=== PATIENT | female | born 1965 | race Caucasian/White ===

== ENCOUNTER 2020-12-03 11:50 | Outpatient (REF) | payer BC, SELFPAY ==
--- NOTE | ~2020-12-03 | XR_ITS ---
EXAMINATION: XR CHEST CLINICAL INFORMATION: Cough and fever. COMPARISON: None TECHNIQUE: 2 views of the chest were obtained. FINDINGS: The lungs are well-expanded and clear of acute process. The heart size and pulmonary vascularity is normal. No gross bony abnormality seen. XR/XR chest 2V IMPRESSION: Unremarkable chest exam.
== END 2020-12-03 11:51 | disposition home or self-care (01) ==
LOC: HO.XRAY 11:50
PROVIDERS: PCP Internal Medicine Medical Oncology; Visit Provider Internal Medicine Medical Oncology
DX: R05 Cough (principal); R50.9 Fever, unspecified
CPT/HCPCS: 71046

== ENCOUNTER 2022-01-01 07:58 | Outpatient (REF) | payer BC, SELFPAY ==
--- NOTE | ~2022-01-01 | MM_ITS ---
EXAMINATION: BONE DENSITOMETRY CLINICAL INDICATION: Osteoporosis. COMPARISON: None (current study represents initial baseline exam). TECHNIQUE: Using a [employer] DXA System (software version: 13.1) manufactured by [employer], dual-energy x-ray absorptiometry was performed of the lumbar spine and left hip. The images are of good technical quality. Summary results are attached. FINDINGS: AP SPINE L1-L4: BMD 1.167 g/cm2, Z-score 0.3, T-score -0.1, normal. LEFT FEMUR, NECK: BMD 0.899 g/cm2, Z-score -0.2, T-score -1.0, normal. LEFT FEMUR, TOTAL: BMD 0.894 g/cm2, Z-score -0.5, T-score -0.9, normal. IDENTIFIED RISK FACTORS: Menopause, osteoporosis, anticonvulsant. HISTORY OF FRACTURE: None listed. MEDICATIONS: None listed. MM/XR DEXA axial skeleton IMPRESSION: 1. DIAGNOSIS: Normal bone density based on the lowest T-score value of -1.0 in the femoral neck applying World Health Organization criteria. 2. 10-YEAR FRACTURE RISK PREDICTION, FRAX: According to the guidelines, FRAX calculation should only be performed on patients in the osteopenia bone density category. Therefore, FRAX was not performed on this patient. 3. Treatment Recommendations: NOF guidelines recommend consideration for treatment in postmenopausal women and men age 50 and older presenting with the following: -A hip or vertebral (clinical or morphometric) fracture. -T-score less than or equal to -2.5 at the femoral neck or spine after appropriate evaluation to exclude secondary causes. -Low bone mass at the hip or spine and a 10-year fracture probability by FRAX of greater than or equal to 3% for hip fracture or greater than or equal to 20% for major osteoporotic fracture based on the [place] adapted WHO algorithm. 4. Other Recommendations: All treatment decisions require clinical judgment and consideration of individual patient factors, including patient preferences, comorbidities, previous drug use, risk factors not captured in the FRAX model (e.g. frailty, falls, vitamin D deficiency, increased bone turnover, interval significant decline in bone density) and possible under or overestimation of fracture risk by FRAX. FUTURE SCAN RECOMMENDATION: People with diagnosed cases of osteoporosis or at high risk for fracture should have regular bone mineral density tests. For patients eligible for Medicare, routine testing is allowed once every 2 years. The testing frequency can be increased to one year for patients who have rapidly progressing disease, those who are receiving or discontinuing medical therapy to restore bone mass, or have additional risk factors.
== END 2022-01-01 07:59 | disposition home or self-care (01) ==
LOC: HO.MAMMO 07:58
PROVIDERS: Visit Provider Internal Medicine Medical Oncology
DX: Z13.820 Encounter for screening for osteoporosis (principal); Z78.0 Asymptomatic menopausal state; M81.0 Age-related osteoporosis without current pathological fracture
CPT/HCPCS: 77080

== ENCOUNTER 2022-06-02 10:30 | Outpatient (REF) | payer BC, SELFPAY ==
[2022-06-02 10:53] LABS: MANUAL DIFF FLAG NO
[2022-06-02 11:32] LABS: Basophils Percent Auto 0.4 % (0-2); Eosinophils Absolute Auto 0.2 X10*3/uL (0.0-0.4); Eosinophils Percent Auto 2.5 % (0-4); Hematocrit 40.3 % (37.0-47.0); Hemoglobin 13.6 g/dl (12.0-16.0); Imm Gran Abs Auto 0.03 X10*3/uL (0.00-0.03); Imm Gran Pct Auto 0.4 % (0.0-0.4); Lymphocytes Absolute Auto 2.2 X10*3/uL (1.2-4.9); Mean Corpuscular HGB Conc 33.7 g/dl (31.0-35.0); Mean Corpuscular Hemoglobin 30.4 pg (27.0-33.0); Mean Corpuscular Volume 90.2 fL (80.0-98.0); Mean Platelet Volume 10.6 fL (9.4-12.3); Monocytes Absolute Auto 0.6 X10*3/uL (0.1-1.2); Monocytes Percent Auto 8.3 % (2-11); Neutrophils Absolute Auto 4.5 x10*3/uL (2.0-8.3); Neutrophils Percent Auto 59.4 % (45-73); Platelet Count 255 X10*3/uL (160-400); Red Blood Count 4.47 X10*6/uL (4.20-5.50); Red Cell Distribution Width 12.2 % (11.0-16.0); White Blood Count 7.6 X10*3/uL (4.8-10.8)
[2022-06-02 12:15] LABS: Alanine Aminotransferase 19 U/L (0-31); Alkaline Phosphatase 68 U/L (39-117); Anion Gap 15 (12-20); Aspartate Amino Transferase 18 U/L (5-31); Bilirubin Total 0.2 mg/dL (0.0-1.0); Blood Urea Nitrogen 14 mg/dL (9-16); Calcium 8.9 mg/dL (8.4-10.2); Carbon Dioxide 25 mmol/L (22-29); Chloride 105 mmol/L (96-108); Cholesterol 210 mg/dL; Estimated Glomerular Filt Rate > 60; Glucose Fasting 115 mg/dL (60-99); HDL Cholesterol 52 mg/dL; LDL Cholesterol Calculated 116 mg/dl; Potassium 4.2 mmol/L (3.3-5.1); Sodium 141 mmol/L (135-145); Total Protein 6.6 g/dL (6.5-8.0); Triglycerides 210 mg/dL
== END 2022-06-02 10:31 | disposition home or self-care (01) ==
LOC: HO.LAB 10:30
PROVIDERS: PCP Internal Medicine Medical Oncology; Visit Provider Internal Medicine Medical Oncology
DX: E78.2 Mixed hyperlipidemia (principal); E66.3 Overweight
CPT/HCPCS: 36415; 80053; 80061; 85025

== ENCOUNTER 2022-12-15 10:29 | Outpatient (REF) | payer BC, SELFPAY ==
--- NOTE | ~2022-12-15 | US_ITS ---
EXAMINATION: US EXTRACRANIAL CAROTID DUPLEX, BILATERAL CLINICAL INFORMATION: Fibromuscular dysplasia COMPARISON: None available. TECHNIQUE: Real-time ultrasound and Doppler techniques (integrating B-mode 2-D vascular images, Doppler spectral analysis and color-flow Doppler imaging) were utilized to interrogate the extracranial carotid arteries, the vertebral arteries and proximal subclavian arteries bilaterally. The degree of stenosis is determined by criteria similar to NASCET. FINDINGS: Right Side: 1. There is no significant atherosclerotic plaque seen in the bifurcation/proximal ICA region. 2. The common carotid artery PSV proximally is 88.4 cm/s and distally 95 cm/s. 3. The proximal internal carotid artery velocities are 82.1 cm/s systolic and 27 cm/s diastolic. 4. The proximal external carotid artery PSV is 77.4 cm/s. 5. The vertebral artery shows antegrade flow. 6. The subclavian artery waveforms are normal. Left Side: 1. There is no significant atherosclerotic plaque seen in the bifurcation/proximal ICA region. 2. The common carotid artery PSV proximally is 111 cm/s and distally 96.7 cm/s. 3. The proximal internal carotid artery velocities are 78 cm/s systolic and 18.8 cm/s diastolic. 4. The proximal external carotid artery PSV is 89.7 cm/s. 5. The vertebral artery shows antegrade flow. 6. The subclavian artery waveforms are normal. US/US carotid duplex BI IMPRESSION: 1. RIGHT: Normal right internal carotid artery without atherosclerotic plaque or hemodynamically significant stenosis. 2. LEFT: Normal left internal carotid artery without atherosclerotic plaque or hemodynamically significant stenosis.
== END 2022-12-15 10:30 | disposition home or self-care (01) ==
LOC: HO.HMGCX 10:29
PROVIDERS: PCP Internal Medicine Medical Oncology; Visit Provider Internal Medicine Medical Oncology
DX: I77.3 Arterial fibromuscular dysplasia (principal); I65.29 Occlusion and stenosis of unspecified carotid artery; Z86.73 Personal history of transient ischemic attack (TIA), and cerebral infarction without residual deficits
CPT/HCPCS: 93880

== ENCOUNTER 2023-01-10 07:13 | Outpatient (REF) | payer BC, SELFPAY ==
[2023-01-10 07:33] LABS: MANUAL DIFF FLAG NO
[2023-01-10 07:43] LABS: Basophils Percent Auto 0.4 % (0-2); Eosinophils Absolute Auto 0.2 X10*3/uL (0.0-0.4); Eosinophils Percent Auto 3.3 % (0-4); Hematocrit 40.2 % (37.0-47.0); Imm Gran Abs Auto 0.02 X10*3/uL (0.00-0.03); Imm Gran Pct Auto 0.3 % (0.0-0.4); Lymphocytes Absolute Auto 2.5 X10*3/uL (1.2-4.9); Lymphocytes Percent Auto 35.6 % (20-40); Mean Corpuscular HGB Conc 34.8 g/dl (31.0-35.0); Mean Corpuscular Hemoglobin 30.9 pg (27.0-33.0); Mean Corpuscular Volume 88.7 fL (80.0-98.0); Mean Platelet Volume 9.3 fL (9.4-12.3); Monocytes Absolute Auto 0.6 X10*3/uL (0.1-1.2); Monocytes Percent Auto 8.7 % (2-11); Neutrophils Absolute Auto 3.6 x10*3/uL (2.0-8.3); Neutrophils Percent Auto 51.7 % (45-73); Platelet Count 261 X10*3/uL (160-400); Red Blood Count 4.53 X10*6/uL (4.20-5.50); Red Cell Distribution Width 12.4 % (11.0-16.0)
[2023-01-10 08:08] LABS: Alanine Aminotransferase 24 U/L (0-31); Albumin Level 4.2 g/dL (3.5-5.0); Alkaline Phosphatase 69 U/L (39-117); Anion Gap 15 (12-20); Aspartate Amino Transferase 22 U/L (5-31); Bilirubin Total 0.5 mg/dL (0.0-1.0); Blood Urea Nitrogen 16 mg/dL (9-16); Calcium 9.2 mg/dL (8.4-10.2); Carbon Dioxide 21 mmol/L (22-29); Chloride 107 mmol/L (96-108); Cholesterol 262 mg/dL; Estimated Glomerular Filt Rate > 60; Glucose Random 101 mg/dL (60-115); HDL Cholesterol 60 mg/dL; LDL Cholesterol Calculated 181 mg/dl; Potassium 4.3 mmol/L (3.3-5.1); Sodium 139 mmol/L (135-145); Total Protein 6.7 g/dL (6.5-8.0); Triglycerides 106 mg/dL
== END 2023-01-10 07:14 | disposition home or self-care (01) ==
LOC: HO.LAB 07:13
PROVIDERS: PCP Internal Medicine Medical Oncology; Visit Provider Internal Medicine Medical Oncology
DX: Z00.00 Encounter for general adult medical examination without abnormal findings (principal); E66.3 Overweight; E78.2 Mixed hyperlipidemia
CPT/HCPCS: 36415; 80053; 80061; 85025

== ENCOUNTER → 2023-01-12 08:57 | Outpatient (REF) | payer BC, SELFPAY | LOC: HO.SL 08:57 | PROVIDERS: PCP Internal Medicine Medical Oncology; Visit Provider Internal Medicine Medical Oncology | DX: R06.83 Snoring (principal); E66.3 Overweight | CPT/HCPCS: 95806 ==

== ENCOUNTER 2023-09-01 08:31 | Outpatient (REF) | payer BC, SELFPAY ==
[2023-09-01 09:00] LABS: MANUAL DIFF FLAG NO
[2023-09-01 09:20] LABS: Basophils Percent Auto 0.6 % (0-2); Eosinophils Absolute Auto 0.4 X10*3/uL (0.0-0.4); Eosinophils Percent Auto 4.9 % (0-4); Hematocrit 41.5 % (37.0-47.0); Hemoglobin 13.8 g/dl (12.0-16.0); Imm Gran Abs Auto 0.02 X10*3/uL (0.00-0.03); Imm Gran Pct Auto 0.3 % (0.0-0.4); Lymphocytes Absolute Auto 2.2 X10*3/uL (1.2-4.9); Lymphocytes Percent Auto 31.2 % (20-40); Mean Corpuscular HGB Conc 33.3 g/dl (31.0-35.0); Mean Corpuscular Hemoglobin 30.7 pg (27.0-33.0); Mean Corpuscular Volume 92.2 fL (80.0-98.0); Mean Platelet Volume 9.7 fL (9.4-12.3); Monocytes Absolute Auto 0.8 X10*3/uL (0.1-1.2); Monocytes Percent Auto 10.5 % (2-11); Neutrophils Absolute Auto 3.7 x10*3/uL (2.0-8.3); Neutrophils Percent Auto 52.5 % (45-73); Platelet Count 292 X10*3/uL (160-400); Red Cell Distribution Width 12.6 % (11.0-16.0); White Blood Count 7.1 X10*3/uL (4.8-10.8)
[2023-09-01 09:38] LABS: Alanine Aminotransferase 22 U/L (0-31); Albumin Level 4.2 g/dL (3.5-5.0); Alkaline Phosphatase 72 U/L (39-117); Anion Gap 15 (12-20); Aspartate Amino Transferase 18 U/L (5-31); Bilirubin Total 0.3 mg/dL (0.0-1.0); Blood Urea Nitrogen 19 mg/dL (9-16); Calcium 9.9 mg/dL (8.4-10.2); Carbon Dioxide 27 mmol/L (22-29); Chloride 100 mmol/L (96-108); Cholesterol 246 mg/dL (<200); Estimated Glomerular Filt Rate > 60; Glucose Fasting 97 mg/dL (60-99); HDL Cholesterol 64 mg/dL (>40); LDL Cholesterol Calculated 162 mg/dL (<100); Potassium 4.5 mmol/L (3.3-5.1); Sodium 137 mmol/L (135-145); Total Protein 7.3 g/dL (6.5-8.0); Triglycerides 103 mg/dL (<150)
== END 2023-09-01 08:32 | disposition home or self-care (01) ==
LOC: HO.LAB 08:31
PROVIDERS: PCP Internal Medicine Medical Oncology; Visit Provider Internal Medicine Medical Oncology
DX: Z00.00 Encounter for general adult medical examination without abnormal findings (principal); J45.909 Unspecified asthma, uncomplicated; E78.2 Mixed hyperlipidemia
CPT/HCPCS: 36415; 80053; 80061; 85025

== ENCOUNTER 2023-12-03 16:28 | Outpatient (REF) | payer BC, SELFPAY ==
[2023-12-03 18:30] LABS: Free T4 (Free Thyroxine) 0.97 ng/dL (0.71-1.85); Thyroid Stimulating Hormone 0.79 uIU/mL (0.32-4.0)
== END 2023-12-03 16:29 | disposition home or self-care (01) ==
LOC: HO.LAB 16:28
PROVIDERS: PCP Internal Medicine Medical Oncology; Visit Provider Internal Medicine Medical Oncology
DX: R53.83 Other fatigue (principal); R61 Generalized hyperhidrosis
CPT/HCPCS: 36415; 84439; 84443; 84481

== ENCOUNTER 2024-12-06 06:44 | Outpatient (REF) | payer BC, SELFPAY ==
[2024-12-06 07:01] LABS: MANUAL DIFF FLAG NO
[2024-12-06 07:17] LABS: Basophils Percent Auto 0.5 % (0-2); Eosinophils Absolute Auto 0.2 X10*3/uL (0.0-0.4); Eosinophils Percent Auto 2.7 % (0-4); Hematocrit 41.4 % (37.0-47.0); Hemoglobin 14.4 g/dl (12.0-16.0); Imm Gran Abs Auto 0.01 X10*3/uL (0.00-0.03); Imm Gran Pct Auto 0.1 % (0.0-0.4); Lymphocytes Absolute Auto 2.8 X10*3/uL (1.2-4.9); Lymphocytes Percent Auto 36.2 % (20-40); Mean Corpuscular HGB Conc 34.8 g/dl (31.0-35.0); Mean Corpuscular Hemoglobin 31.6 pg (27.0-33.0); Mean Corpuscular Volume 90.8 fL (80.0-98.0); Mean Platelet Volume 9.7 fL (9.4-12.3); Monocytes Absolute Auto 0.8 X10*3/uL (0.1-1.2); Monocytes Percent Auto 9.7 % (2-11); Neutrophils Percent Auto 50.8 % (45-73); Platelet Count 252 X10*3/uL (160-400); Red Blood Count 4.56 X10*6/uL (4.20-5.50); Red Cell Distribution Width 11.9 % (11.0-16.0); White Blood Count 7.8 X10*3/uL (4.8-10.8)
[2024-12-06 07:57] LABS: Alanine Aminotransferase 26 U/L (0-31); Albumin Level 4.3 g/dL (3.5-5.0); Alkaline Phosphatase 69 U/L (39-117); Anion Gap 13 (12-20); Aspartate Amino Transferase 21 U/L (5-31); Bilirubin Total 0.3 mg/dL (0.0-1.0); Blood Urea Nitrogen 15 mg/dL (9-16); Calcium 9.4 mg/dL (8.4-10.2); Carbon Dioxide 27 mmol/L (22-29); Chloride 104 mmol/L (96-108); Cholesterol 203 mg/dL (<200); Estimated Glomerular Filt Rate > 60; Glucose Fasting 93 mg/dL (60-99); HDL Cholesterol 68 mg/dL (>40); Potassium 4.2 mmol/L (3.3-5.1); Sodium 140 mmol/L (135-145); Total Protein 7.4 g/dL (6.5-8.0)
[2024-12-06 09:06] LABS: LDL Cholesterol Calculated 120 mg/dL (<100); Triglycerides 76 mg/dL (<150)
== END 2024-12-06 06:45 | disposition home or self-care (01) ==
LOC: HO.LAB 06:44
PROVIDERS: PCP Internal Medicine Medical Oncology; Visit Provider Internal Medicine Medical Oncology
DX: E78.2 Mixed hyperlipidemia (principal); E66.3 Overweight
CPT/HCPCS: 36415; 80053; 80061; 85025

== ENCOUNTER 2025-07-07 07:24 | Outpatient (AMB) | payer BC, SELFPAY ==
--- OUTSIDE RECORDS SUMMARY | 2024-12-07 12:00 | XMS_ITS ---
Author Organization Serg Otto III, MD Address [address] [place] [address] [place] [address] Care Team Providers Care Animal Chiropractor Name Role Phone Dr. Serg Otto III Primary Care Provider Allergies Allergen (clinical drug ingredient) Drug/Non Drug Allergy documented on EMR Reaction Allergy Type Onset Date Status Mold Unknown Allergy Active Dust Mites Unknown Allergy Active shrimp allergenic extract Shrimp (Diagnostic) Unknown Drug Allergy Active REASON FOR VISIT Annual Exam Medications Medication SIG (Take, Route, Frequency, Duration) Notes Start Date End Date Status ProAir HFA 108 (90 Base) MCG/ACT 2 puffs as needed Inhalation every 6 hrs Active SUMAtriptan Succinate 100 MG TAKE 1 TABLET BY MOUTH ONCE DAILY NEEDED FOR MIGRAINE Active Paxlovid (300/100) 20 x 150 MG & 10 x 100MG 3 tablets Orally Twice a day 06/15/2023 Active Albuterol Sulfate HFA 108 (90 Base) MCG/ACT 2 puffs Inhalation every 4 hrs for 30 days disp one inhaler 12/07/2024 Active traZODone HCl 50 MG 1 tablet at bedtime as needed Orally Once a day Active Wellbutrin Active LaMICtal 150 MG Oral Acti ve buPROPion HCl ER (SR) 150 MG 1 tablet Orally Twice a day Active Social History Tobacco Use: Social History Observation Description Date Details (start date - stop date) Former Smoker NA - NA Sex Assigned At : Social History Observation Description Sex Assigned At Female Tobacco Control (Standard) Question Answer Notes Tobacco use: Former smoker How long has it been since you last smoked? 1-5 years Additional Findings: Tobacco non-user Ex-cigaret te smoker AUDIT-C (Standard) Question Answer Notes Did you have a drink containing alcohol in the p ast year? No Points 0 Interpretation Negative Problems Problem Type SNOMED Code ICD Code Onset Dates Problem Status W/U Status Risk Notes Problem Postmenopausal (61849552) Postmenopausal (Z78.0) Active confirmed He is mildly symptomatic and it waas not one of her complaints. We discussed bone density measurements and HEAD HOST/HOSTESS visits in menopause. Vital Signs Temperature 99.5 degrees Fahrenheit 12/08/19 25 Blood pressure systolic 130 mm Hg 12/08/19 25 Blood pressure diastolic 65 mm Hg 025 Heart Rate 83 /min 12/07/2024 Height 64.5 in 12/07/2024 Weight 131 lbs 12/07/2024 BMI 22.14 kg/m2 12/07/2024 Encounters Encounter Location Date Provider Diagnosis Serg Otto III, MD [address] [place] [address] [place] [address] 12/07/2024 Serg Otto Mixed hyperlipidemia E78.2 ; Bipolar affective disorder, remission status unspecified F31.9 ; Postmenopausal Z78.0 ; Reactive depression F32.9 ; Asthma due to environmental allergies J45.909 ; Pain in right shoulder M25.511 and Former smoker Z87.891 Assessments Encounter Date Diagnosis (ICD Code) Assessment Notes Treat ment Notes Treatment Clinical Notes 12/07/2024 Mixed hyperlipidemia (ICD-10 - E78.2) Her total cholesterol is 202 and her weight is in the normal range. I recommended a healthy Mediterranean diet and regular physical activity. 12/07/2024 Bipolar affective disorder, remission status unspecified (ICD-10 - F31.9) She will continue on her current therapies and see Dr. Salomon regularly. She is stable and compensated at this time. 12/07/2024 Postmenopausal (ICD-10 - Z78.0) He is mildly symptomatic and it waas not one of her complaints. We discussed bone density measurements and HEAD HOST/HOSTESS visits in menopause. 12/07/2024 Reactive depression (ICD-10 - F32.9) Her depression is well controlled. She is compliant with her medications. She has had no suicidal thinking. 12/07/2024 Asthma due to environmental allergies (ICD-10 - J45.909) She has not experienced any asthma in the recent past. She has medication. If necessary. Her lungs were clear today without wheezes, rales, rhonchi. 12/07/2024 Pain in right shoulder (ICD-10 - M25.511) The pain continues. She was offered an orthopedic referral and will consider it. 12/07/2024 Former smoker (ICD-1 0 - Z87.891) She is highly motivated not to smoke and we discussed a plan to prevent relapse in times of stress or illness. Plan Of Treatment Medication Medication Name Sig Start Date Stop Date Notes ProAir HFA 108 (90 Base) MCG/ACT 2 puffs as needed Inhalation every 6 hrs SUMAtriptan Succinate 100 MG TAKE 1 TABLET BY MOUTH ONCE DAILY NEEDED FOR MIGRAINE Paxlovid (300/100) 20 x 150 MG & 10 x 100MG 3 tablets Orally Twice a day 06/15/2023 Albuterol Sulfate HFA 108 (90 Base) MCG/ACT 2 puffs Inhalation every 4 hrs for 30 days 12/07/2024 disp one inhaler traZODone HCl 50 MG 1 tablet at bedtime as needed Orally Once a day Wellbutrin LaMICtal 150 MG Oral buPROPion HCl ER (SR) 150 MG 1 tablet Orally Twice a day Pending Test Test Name Order Date PROFILE, FASTING (COMPREHENSIVE METABOLI C) 12/07/2024 CBC w DIFF 12/07/2024 BONE DENSITY DEXA 12/07/2024 Lipid Panel 12/07/2024 Next Appt Details Follow Up: 1 Year, Reason: A nnual Exam Provider Name:Serg Otto , 12/08/2025 04:00:00 PM, [address] [place] [address] , [address], [place], [id number], Progress Notes * Nahomi BOO ADOB:[birth year] (58 yo F)Acc No.[id number]:12/07/2024 Progress Notes Patient: Nahomi ALVARZE Provider: Maritza Otto MD :1965 A ge:58 Y S ex:Female Date:12/07/2024 Address:[address] [place], [place] [id number] Subjective: * Chief Complaints: * A nnual Exam * HPI: D epression Screening: She returns to the office at the age of 58, for her annual visit. She is due for her annual mammogram and this was scheduled for her today. She is now postmenopausal. 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 She is up-to-date with colonoscopy. She has no new complaints and denies any chest pain or shortness of breath. W e have discussed the upcoming pollen season. PHQ-9 L ittle interest or pleasure in doing things?Not at all F eeling down, depressed, or hopeless S everal days T rouble falling or staying asleep, or sleeping too much S everal days F eeling tired or having little energy S everal days P oor appetite or overeating N ot at all F eeling bad about yourself or that you are a failure, or have let yourself or your family down N ot at all T rouble concentrating on things, such as reading the newspaper or watching television N ot at all M oving or speaking so slowly that other people could have noticed; or the opposite, being so fidgety or restless that you have been moving around a lot more than usual N ot at all T houghts that you would be better off or of hurting yourself in some way N ot at all T otal Score 3 I nterpretation M inimal Depression C OVID-19 Screening: Questions H ave you had any new onset fever, chills, cough, congestion, sore throat, shortness of breath, muscle aches? N o S MARI Questions: SDOH Questions I n the past year have you been worried about losing your housing? N o I n the past year have you or any family members you live with been unable to get any of the following when it was really needed? Check all that apply: N one * ROS: G eneral/Constitutional: pain o nly normal aches and pains. C hills d enies.?Fatigue a dmits. F ever d enies. E NT: Decreased hearing d enies. R espiratory: Cough d enies. C ardiovascular: Chest pain with exertion d enies. D yspnea on exertion?denies. S hortness of breath d enies. G astrointestinal: Constipation d enies. D ecreased appetite d enies.?Diarrhea d enies. H eartburn c ontrolled with medications. N ausea d enies.?Rectal bleeding d enies. V omiting d enies. H ematology: bruising d enies. p etechiae d enies. S wollen glands n one have been noted. G enitourinary: Frequent urination a t night. M usculoskeletal: Muscle aches d enies. P ainful joints R ight shoulder. S ciatica d enies. W eakness d enies. S kin: Itching d enies. R magui d enies. S kin lesion(s)?denies. N eurologic: Difficulty speaking d enies. D izziness d enies.?Headache d enies. L ow back pain d enies. P sychiatric: Depressed mood w hich is mild. * Medical History: * Surgical History: t onsillectomy age 5 mole removed from the nose bce mohs [id number] colonoscopy, Dr. Barnard, negative results 2018 * Hospitalization/Major Diagno stic Procedure: D enies Past Hospitalization * Family History: F ather: alive 74 yrs, BPH, Glioblastoma, diagnosed with Cancer, HTN. M other: alive 73 yrs, skin cancer. 1 sister(s) - healthy. 1 son(s) . . Her son has schizoaffective disorder and bipolar disorder. Her sister, Kelley, is healthy and well. * Social History: T obacco Use: T obacco Control (Standard) T obacco use: F ormer smoker H ow long has it been since you last smoked??1-5 years A dditional Findings: Tobacco non-user E x-cigarette smoker D rugs/Alcohol: D rugs H ave you used drugs other than those for medical reasons in the past 12 months? N o D rug/Alcohol: A PRINCESS-C (Standard) D id you have a drink containing alcohol in the past year? N o P oints 0 I nterpretation N egative S he was born in the [facility]. 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 She recently moved from [place] to [place], [place]. Her previous name was Jasmeet. * Medications: T akingProAir HFA 108 (90 Base) MCG/ACT Aerosol Solution 2 puffs as needed Inhalation every 6 hrs traZODone HCl 50 MG Tablet 1 tablet at bedtime as needed Orally Once a day buPROPion HCl ER (SR) 150 MG Tablet Extended Release 12 Hour 1 tablet Orally Twice a day Wellbutrin LaMICtal 150 MG Tablet Oral SUMAtriptan Succinate 100 MG Tablet TAKE 1 TABLET BY MOUTH ONCE DAILY NEEDED FOR MIGRAINE Taking ProAir HFA 108 (90 Base) MCG/ACT Aerosol Solution 2 puffs as needed Inhalation every 6 hrs Taking traZODone HCl 50 MG Tablet 1 tablet at bedtime as needed Orally Once a day Taking buPROPion HCl ER (SR) 150 MG Tablet Extended Release 12 Hour 1 tablet Orally Twice a day Taking Wellbutrin Taking LaMICtal 150 MG Tablet Oral Taking SUMAtriptan Succinate 100 MG Tablet TAKE 1 TABLET BY MOUTH ONCE DAILY NEEDED FOR MIGRAINE DiscontinuedPaxlovid (300/100) 20 x 150 MG & 10 x 100MG Tablet Therapy Pack 3 tablets Orally Twice a day Medication List reviewed and reconciled with the patientDiscontinued Paxlovid (300/100) 20 x 150 MG & 10 x 100MG Tablet Therapy Pack 3 tablets Orally Twice a day Medication List reviewed and reconciled with the patient * Allergies: S hrimp (Diagnostic)MoldDust Mitesno[Allergies Verified] Objective: * Vitals: H t: 64.5, Wt: 131, BMI:22.14, BP: 130/65, HR: 83, Temp: 99.5, Wt-k.42. * P ast Orders: Lab:Complete Blood Count Aut o Diff * Collection Date 12/06/2024 09/01/2023 06/02/2022 Collection Time 07:01 AM 08:59 AM 10:52 AM Order Date 12/06/2024 09/01/2023 06/02/2022 White Blood Count 7.8 (Ref Range: 4.8-10.8 X10*3/uL) 7.1 (Ref Range: 4.8-10.8 X10*3/uL) 7.6 (Ref Range: 4.8-10.8 X10*3/uL) Red Blood Count 4.56 (Ref Range: 4.20-5.50 X10*6/uL) 4.50 (Ref Range: 4.20-5.50 X10*6/uL) 4.47 (Ref Range: 4.20-5.50 X10*6/uL) Hemoglobin 14.4 (Ref Range: 12.0-16.0 g/dl) 13.8 (Ref Range: 12.0-16.0 g/dl) 13.6 (Ref Range: 12.0-16.0 g/dl) Hematocrit 41.4 (Ref Range: 37.0-47.0 %) 41.5 (Ref Range: 37.0-47.0 %) 40.3 (Ref Range: 37.0-47.0 %) Mean Corpuscular Volume 90.8 (Ref Range: 80.0-98.0 fL) 92.2 (Ref Range: 80.0-98.0 fL) 90.2 (Ref Range: 80.0-98.0 fL) Mean Corpuscular Hemoglobin 31.6 (Ref Range: 27.0-33.0 pg) 30.7 (Ref Range: 27.0-33.0 pg) 30.4 (Ref Range: 27.0-33.0 pg) Mean Corpuscular HGB Conc 34.8 (Ref Range: 31.0-35.0 g/dl) 33.3 (Ref Range: 31.0-35.0 g/dl) 33.7 (Ref Range: 31.0-35.0 g/dl) Red Cell Distribution Width 11.9 (Ref Range: 11.0-16.0 %) 12.6 (Ref Range: 11.0-16.0 %) 12.2 (Ref Range: 11.0-16.0 %) Platelet Count 252 (Ref Range: 160-400 X10*3/uL) 292 (Ref Range: 160-400 X10*3/uL) 255 (Ref Range: 160-400 X10*3/uL) Mean Platelet Volume 9.7 (Ref Range: 9.4-12.3 fL) 9.7 (Ref Range: 9.4-12.3 fL) 10.6 (Ref Range: 9.4-12.3 fL) Neutrophils Percent Auto 50.8 (Ref Range: 45-73 %) 52.5 (Ref Range: 45-73 %) 59.4 (Ref Range: 45-73 %) Imm Gran Pct Auto 0.1 (Ref Range: 0.0-0.4 %) 0.3 (Ref Range: 0.0-0.4 %) 0.4 (Ref Range: 0.0-0.4 %) Lymphocytes Percent Auto 36.2 (Ref Range: 20-40 %) 31.2 (Ref Range: 20-40 %) 29.0 (Ref Range: 20-40 %) Monocytes Percent Auto 9.7 (Ref Range: 2-11 %) 10.5 (Ref Range: 2-11 %) 8.3 (Ref Range: 2-11 %) Eosinophils Percent Auto 2.7 (Ref Range: 0-4 %) 4.9 H (Ref Range: 0-4 %) 2.5 (Ref Range: 0-4 %) Basophils Percent Auto 0.5 (Ref Range: 0-2 %) 0.6 (Ref Range: 0-2 %) 0.4 (Ref Range: 0-2 %) NRBC Pct Auto 0.0 (Ref Range: 0.0-0.2 /100WBC) 0.0 (Ref Range: 0.0-0.2 /100WBC) 0.0 (Ref Range: 0.0-0.2 /100WBC) Neutrophils Absolute Auto 4.0 (Ref Range: 2.0-8.3 x10*3/uL) 3.7 (Ref Range: 2.0-8.3 x10*3/uL) 4.5 (Ref Range: 2.0-8.3 x10*3/uL) Imm Gran Abs Auto 0.01 (Ref Range: 0.00-0.03 X10*3/uL) 0.02 (Ref Range: 0.00-0.03 X10*3/uL) 0.03 (Ref Range: 0.00-0.03 X10*3/uL) Lymphocytes Absolute Auto 2.8 (Ref Range: 1.2-4.9 X10*3/uL) 2.2 (Ref Range: 1.2-4.9 X10*3/uL) 2.2 (Ref Range: 1.2-4.9 X10*3/uL) Monocytes Absolute Auto 0.8 (Ref Range: 0.1-1.2 X10*3/uL) 0.8 (Ref Range: 0.1-1.2 X10*3/uL) 0.6 (Ref Range: 0.1-1.2 X10*3/uL) Eosinophils Absolute Auto 0.2 (Ref Range: 0.0-0.4 X10*3/uL) 0.4 (Ref Range: 0.0-0.4 X10*3/uL) 0.2 (Ref Range: 0.0-0.4 X10*3/uL) Basophils Absolute Auto 0.0 (Ref Range: 0.0-0.2 X10*3/uL) 0.0 (Ref Range: 0.0-0.2 X10*3/uL) 0.0 (Ref Range: 0.0-0.2 X10*3/uL) NRBC Abs Auto 0.000 (Ref Range: 0.0-0.012 X10*3/uL) 0.000 (Ref Range: 0.0-0.012 X10*3/uL) 0.000 (Ref Range: 0.0-0.012 X10*3/uL) * Lab:[facility] * Collection Date 12/06/2024 09/01/2023 06/02/2022 Collection Time 07:01 AM 08:59 AM 10:52 AM Order Date 12/06/2024 09/01/2023 06/02/2022 Sodium 140 (Ref Range: 135-145 mmol/L) 137 (Ref Range: 135-145 mmol/L) 141 (Ref Range: 135-145 mmol/L) Bilirubin Total 0.3 (Ref Range: 0.0-1.0 mg/dL) 0.3 (Ref Range: 0.0-1.0 mg/dL) 0.2 (Ref Range: 0.0-1.0 mg/dL) Aspartate Amino Transferase 21 (Ref Range: 5-31 U/L) 18 (Ref Range: 5-31 U/L) 18 (Ref Range: 5-31 U/L) Alanine Aminotransferase 26 (Ref Range: 0-31 U/L) 22 (Ref Range: 0-31 U/L) 19 (Ref Range: 0-31 U/L) Total Protein 7.4 (Ref Range: 6.5-8.0 g/dL) 7.3 (Ref Range: 6.5-8.0 g/dL) 6.6 (Ref Range: 6.5-8.0 g/dL) Albumin Level 4.3 (Ref Range: 3.5-5.0 g/dL) 4.2 (Ref Range: 3.5-5.0 g/dL) 4.0 (Ref Range: 3.5-5.0 g/dL) Alkaline Phosphatase 69 (Ref Range: 39-117 U/L) 72 (Ref Range: 39-117 U/L) 68 (Ref Range: 39-117 U/L) Potassium 4.2 (Ref Range: 3.3-5.1 mmol/L) 4.5 (Ref Range: 3.3-5.1 mmol/L) 4.2 (Ref Range: 3.3-5.1 mmol/L) Chloride 104 (Ref Range: 96-108 mmol/L) 100 (Ref Range: 96-108 mmol/L) 105 (Ref Range: 96-108 mmol/L) Carbon Dioxide 27 (Ref Range: 22-29 mmol/L) 27 (Ref Range: 22-29 mmol/L) 25 (Ref Range: 22-29 mmol/L) Anion Gap 13 (Ref Range: 12-20) 15 (Ref Range: 12-20) 15 (Ref Range: 12-20) Blood Urea Nitrogen 15 (Ref Range: 9-16 mg/dL) 19 H (Ref Range: 9-16 mg/dL) 14 (Ref Range: 9-16 mg/dL) Creatinine 0.79 (Ref Range: 0.5-1.4 mg/dL) 0.87 (Ref Range: 0.5-1.4 mg/dL) 0.86 (Ref Range: 0.5-1.4 mg/dL) Estimated Glomerular Filt Rate > 60 > 60 > 60 Glucose Fasting 93 (Ref Range: 60-99 mg/dL) 97 (Ref Range: 60-99 mg/dL) 115 H (Ref Range: 60-99 mg/dL) Calcium 9.4 (Ref Range: 8.4-10.2 mg/dL) 9.9 (Ref Range: 8.4-10.2 mg/dL) 8.9 (Ref Range: 8.4-10.2 mg/dL) * Lab:Lipid Panel * Collection Date 12/06/2024 09/01/2023 06/02/2022 Collection Time 07:01 AM 08:59 AM 10:52 AM Order Date 12/06/2024 09/01/2023 06/02/2022 Triglycerides 76 (Ref Range: <150 mg/dL) 103 (Ref Range: <150 mg/dL) 210 (Ref Range: mg/dL) Cholesterol 203 H (Ref Range: <200 mg/dL) 246 H (Ref Range: <200 mg/dL) 210 (Ref Range: mg/dL) LDL Cholesterol Calculated 120 H (Ref Range: <100 mg/dL) 162 H (Ref Range: <100 mg/dL) 116 (Ref Range: mg/dl) HDL Cholesterol 68 (Ref Range: >40 mg/dL) 64 (Ref Range: >40 mg/dL) 52 (Ref Range: mg/dL) * Examination: G eneral Examination: GENERAL APPEARANCE: p leasant, well nourished, well developed, in no acute distress, calm and relaxed, woman. HEAD: a traumatic, normocephalic. EYES: e brenda, perrla, anicteric, conjugate. EARS: n ormal. NOSE: s eptum intact. ORAL CAVITY: n ormal, unremarkable. NECK/THYROID: n o jugular venous distention, no carotid bruit, thyroid normal. LYMPH NODES: n o enlarged lymph nodes,spleen normal. SKIN: n o suspicious lesions, anicteric. HEART: n o clicks, gallops, murmurs, or rubs, regular rhythm, S1, S2 normal, no s3, or vascular bruits. LUNGS: c lear to auscultation . BREASTS: P refers HEAD HOST/HOSTESS. ABDOMEN: b owel sounds normal, no ascites, no organomegaly, no mass. RECTAL EXAM: n ot examined, Prefers HEAD HOST/HOSTESS. MUSCULOSKELETAL: e xtremities unremarkable, no clubbing, cyanosis or edema. PERIPHERAL PULSES: n ormal. NEUROLOGIC: a lert and oriented, cranial nerves 2-12 grossly intact, deep tendon reflexes 2+ symmetrical, motor strength normal upper and lower extremities, sensory exam intact. PSYCH: a lert, oriented. Assessment: * Assessment: 1. B ipolar affective disorder, remission status unspecified - F31.9 (Primary) N otes :She will continue on her current therapies and see Dr. Salomon regularly. She is stable and compensated at this time. 2 . M ixed hyperlipidemia - E78.2 N otes :Her total cholesterol is 202 and her weight is in the normal range. I recommended a healthy Mediterranean diet and regular physical activity. 3 . P ostmenopausal - Z78.0 N otes :He is mildly symptomatic and it waas not one of her complaints. We discussed bone density measurements and HEAD HOST/HOSTESS visits in menopause. 4 . R eactive depression - F32.9 N otes :Her depression is well controlled. She is compliant with her medications. She has had no suicidal thinking. 5 . A sthma due to environmental allergies - J45.909 N otes :She has not experienced any asthma in the recent past. She has medication. If necessary. Her lungs were clear today without wheezes, rales, rhonchi. 6 . P ain in right shoulder - M25.511 N otes :The pain continues. She was offered an orthopedic referral and will consider it. 7 . F ormer smoker - Z87.891 N otes :She is highly motivated not to smoke and we discussed a plan to prevent relapse in times of stress or illness. Plan: * Treatment: 2. P ostmenopausal I maging: BONE DENSITY DEXA 3. O thers Continue SUMAtriptan Succinate Tablet, 100 MG, TAKE 1 TABLET BY MOUTH ONCE DAILY NEEDED FOR MIGRAINE; C ontinue Paxlovid (300/100) Tablet Therapy Pack, 20 x 150 MG & 10 x 100MG, 3 tablets, Orally, Twice a day; C ontinue ProAir HFA Aerosol Solution, 108 (90 Base) MCG/ACT, 2 puffs as needed, Inhalation, every 6 hrs; C ontinue traZODone HCl Tablet, 50 MG, 1 tablet at bedtime as needed, Orally, Once a day; C ontinue buPROPion HCl ER (SR) Tablet Extended Release 12 Hour, 150 MG, 1 tablet, Orally, Twice a day; C ontinue Wellbutrin; C ontinue LaMICtal Tablet, 150 MG, Oral; S tart Albuterol Sulfate HFA Aerosol Solution, 108 (90 Base) MCG/ACT, 2 puffs, Inhalation, every 4 hrs, 30 days, 1 Applicator, Refills 11, Notes to Pharmacist: disp one inhaler. * Procedure Codes: * Preventive Medicine: Counseling: S moking/Tobacco Use Patient counseled on the dangers of tobacco use and urged to quit. 0 12/07/2024 * Follow Up: 1 Year (Reason: Annual Exam) * Images: * Sign off status: Completed true * Provider: Maritza Otto MD Date: 0 12/07/2024 Generated for Arianna almaguer/Nitza/Cbransmitting on: 1 07:26 AM EDT History and Physical Notes * HPI (History of Present Illness) Category Sub-Category Detail Notes Depression Screening PHQ-9 Little inte rest or pleasure in doing things: Not at all Feeling down, depressed, or hopeless: Se veral days Trouble falling or staying asleep, or sl eeping too much: Several days Feeling tired or having little energy: S everal days Poor appetite or overeating: Not at all Feeling bad about yourself o r that you are a failure, or have let yourself or your family down: Not at all Trouble concentrating on thi ngs, such as reading the newspaper or watching television: Not at all Moving or speaking so slowly that other people could have noticed; or the opposite, being so fidgety or restless that you have been moving around a lot more than usual: Not at all Thoughts that you would be b marlon off or of hurting yourself in some way: Not at all Total Score: 3 Interpretation: Minimal Depression COVID-19 Screening Questions Have you had any new onset fever, chills, cough, congestion, sore throat, shortness of breath, muscle aches?: No SDOH Questions SDOH Questions In the past year have you been worried about losing your housing?: No In the past year have you or any family members you live with been unable to get any of the following when it was really needed? Check all that apply:: None Examination Category Sub-Category Detail Notes General Examination GENERAL APPEARANCE: pleasant , well nourished, well developed, in no acute distress, calm and relaxed, woman HEAD: atraumatic, normocep halic EYES: eomi, perrla, anicte patricia, conjugate EARS: normal NOSE: septum intact NECK/THYROID: no jugular venous di stention, no carotid bruit, thyroid normal HEART: no clicks, gallops, murmurs, or rubs, regular rhythm, S1, S2 normal, no s3, or vascular bruits LUNGS: clear to auscultatio n ABDOMEN: bowel sounds normal, no ascites, no organomegaly, no mass NEUROLOGIC: alert and oriented, cranial nerves 2-12 grossly intact, deep tendon reflexes 2+ symmetrical, motor strength normal upper and lower extremities, sensory exam intact SKIN: no suspicious lesion s, anicteric PERIPHERAL PULSES: normal BREASTS: Prefers HEAD HOST/HOSTESS MUSCULOSKELETAL: extremities unremark able, no clubbing, cyanosis or edema LYMPH NODES: no enlarged lymph no zackary,spleen normal RECTAL EXAM: not examined, Prefer s HEAD HOST/HOSTESS PSYCH: alert, oriented ORAL CAVITY: normal, unremarkable
--- OUTSIDE RECORDS SUMMARY | 2025-06-19 05:15 | XMS_ITS ---
Author Organization Serg Otto III, MD Address [address] [place] [address] [place] [id number] Care Team Providers Care Profile Shaper Operator Name Role Phone Dr. Serg Otto III Primary Care Provider Allergies Allergen (clinical drug ingredient) Drug/Non Drug Allergy documented on EMR Reaction Allergy Type Onset Date Status Mold Unknown Allergy Active Dust Mites Unknown Allergy Active shrimp allergenic extract Shrimp (Diagnostic) Unknown Drug Allergy Active Reason For Referral Reason Evaluate and Treat Increased Migraine Diagnosis 1 Migraine without aur a and without status migrainosus, not intractable (G43.009) Referral Organization Serg Otto III, MD Referring Provider First Name Serg Referring Provider Last Name Clarita Referring Provider Speciality Internal M edicine Referred Provider Anjel Henry Referred Provider Specialty Neurology General Notes Mikayla Marrero 06/23/2025 04:22:03 PM > referral and progress note faxed. Referral Priority Routine REASON FOR VISIT Frequent migraine headaches, Bipolar disorder, Depression, Asthma, Right shoulder pain Medications Medication SIG (Take, Route, Frequency, Duration) Notes Start Date End Date Status SUMAtriptan Succinate 100 MG 1 tablet if needed, may take second dose at least 2 hours after first Orally twice a day for 21 days 06/19/2025 Active traZODone HCl 50 MG 1 tablet at bedtime as needed Orally Once a day Active buPROPion HCl ER (SR) 150 MG 1 tablet Orally Twice a day Active ProAir HFA 108 (90 Base) MCG/ACT 2 puffs as needed Inhalation every 6 hrs Active Albuterol Sulfate HFA 108 (90 Base) MCG/ACT 2 puffs Inhalation every 4 hrs disp one inhaler 12/07/2024 Active SUMAtriptan Succinate 100 MG TAKE 1 TABLET BY MOUTH ONCE DAILY if NEEDED FOR MIGRAINE Orally Once a day Active Wellbutrin Active LaMICtal 150 MG Oral Acti ve Social History Tobacco Use: Social History Observation Description Date Details (start date - stop date) Former Smoker NA - NA Sex Assigned At : Social History Observation Description Sex Assigned At Female Tobacco Control (Standard) Question Answer Notes Tobacco use: Former smoker How long has it been since you last smoked? 1-5 years Additional Findings: Tobacco non-user Ex-cigaret te smoker Vital Signs Temperature 97.5 degrees Fahrenheit 06/19/20 25 Blood pressure systolic 119 mm Hg 06/19/20 25 Blood pressure diastolic 77 mm Hg 025 Heart Rate 82 /min 06/19/2025 Height 64.5 in 06/19/2025 Weight 132 lbs 06/19/2025 BMI 22.31 kg/m2 06/19/2025 Encounters Encounter Location Date Provider Diagnosis Serg Otto III, MD [address] [place] [address] [place], [place] [phone] 06/19/2025 Serg Otto Bipolar affective disorder, remission status unspecified F31.9 ; Migraine without aura and without status migrainosus, not intractable G43.009 ; Reactive depression F32.9 ; Asthma due to environmental allergies J45.909 ; Pain in right shoulder M25.511 and Gastroesophageal reflux disease without esophagitis K21.9 Assessments Encounter Date Diagnosis (ICD Code) Assessment Notes Treat ment Notes Treatment Clinical Notes 06/19/2025 Bipolar affective disorder, remission status unspecified (ICD-10 - F31.9) She will continue on her current therapies and see Dr. Salomon regularly. She is stable and compensated at this time. 06/19/2025 Migraine without aur a and without status migrainosus, not intractable (ICD-10 - G43.009) She will continue on Imitrex.I have refilled that prescription and given her a larger supply. I have referred her to neurology for an expert opinion. 06/19/2025 Reactive depression (ICD-10 - F32.9) Her depression is well controlled. She is compliant with her medications. She has had no suicidal thinking. 06/19/2025 Asthma due to environmental allergies (ICD-10 - J45.909) She has not experienced any asthma in the recent past. She has medication. If necessary. Her lungs were clear today without wheezes, rales, rhonchi. 06/19/2025 Pain in right should er (ICD-10 - M25.511) The pain continues. She was offered an orthopedic referral and will consider it. 06/19/2025 Gastroesophageal reflux disease without esophagitis (ICD-10 - K21.9) Her reflux symptoms are well controlled with [id number] medications. Plan Of Treatment Medication Medication Name Sig Start Date Stop Date Notes SUMAtriptan Succinate 100 MG 1 tablet if needed, may take second dose at least 2 hours after first Orally twice a day for 21 days 06/19/2025 traZODone HCl 50 MG 1 tablet at bedtime as needed Orally Once a day buPROPion HCl ER (SR) 150 MG 1 tablet Orally Twice a day ProAir HFA 108 (90 Base) MCG/ACT 2 puffs as needed Inhalation every 6 hrs Albuterol Sulfate HFA 108 (90 Base) MCG/ACT 2 puffs Inhalation every 4 hrs 12/07/2024 disp one inhaler SUMAtriptan Succinate 100 MG TAKE 1 TABLET BY MOUTH ONCE DAILY if NEEDED FOR MIGRAINE Orally Once a day Wellbutrin LaMICtal 150 MG Oral Referrals Referral Date Details 06/19/2025 06/19/2025, Evaluate and Treat Increased Migraine, Anjel Henry Next Appt Details Follow Up: 2 Weeks, Reason: Telehealth Provider Name:Serg Otto , 12/08/2025 04:00:00 PM, [address] [place] [address] [address], [place], [id number], Progress Notes * Nahomi BOO ADOB:[birth year] (59 yo F)Acc No.[id number]:06/19/2025 Progress Notes Patient: Nahomi ALVAREZ Provider: Maritza Otto MD :1965 A ge:59 Y S ex:Female Date:06/19/2025 Address:[address] [place] [address], [id number] Subjective: * Chief Complaints: * F requent migraine headachesBipolar disorderDepressionAsthmaRight shoulder pain * HPI: C OVID-19 Screening: Since the end of April 2025 she has been having more frequent migraines. These are relieved with the sumatriptan and. She has not been sleeping well.Her depression is unchanged. The right shoulder pain is mild to moderate. She is no longer smoking tobacco. Questions H ave you had any new onset fever, chills, cough, congestion, sore throat, shortness of breath, muscle aches? N o * ROS: G eneral/Constitutional: pain M ore frequent migraine headaches. C hills d enies. F atigue a dmits. F ever d enies. E [...] have been noted. G enitourinary: Frequent urination d enies. M usculoskeletal: Muscle aches d enies. P ainful joints d enies. S ciatica d enies. W eakness d enies. S kin: Itching d enies. R magui d enies. S kin lesion(s)?denies. N eurologic: Difficulty speaking d enies. D izziness d enies.?Headache d enies. L ow back pain d enies. P sychiatric: Depressed mood d enies. * Medical History: * Surgical History: t onsillectomy age 5 mole removed from the nose bce mohs [id number] colonoscopy, Dr. Barnard, negative results 2018 * [...] dditional Findings: Tobacco non-user E x-cigarette smoker S he was born in the [employer]. 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 She recently moved from [place] to [place], [place]. Her previous name was Jasmeet. * Medications: T akingProAir HFA 108 (90 Base) MCG/ACT Aerosol Solution 2 puffs as needed Inhalation every 6 hrs traZODone HCl 50 MG Tablet 1 tablet at bedtime as needed Orally Once a day buPROPion HCl ER (SR) 150 MG Tablet Extended Release 12 Hour 1 tablet Orally Twice a day Wellbutrin LaMICtal 150 MG Tablet Oral Albuterol Sulfate HFA 108 (90 Base) MCG/ACT Aerosol Solution 2 puffs Inhalation every 4 hrs , Notes to Pharmacist: disp one inhalerSUMAtriptan Succinate 100 MG Tablet TAKE 1 TABLET BY MOUTH ONCE DAILY if NEEDED FOR MIGRAINE Orally Once a day Taking ProAir HFA 108 (90 Base) MCG/ACT Aerosol Solution 2 puffs as needed Inhalation every 6 hrs Taking traZODone HCl 50 MG Tablet 1 tablet at bedtime as needed Orally Once a day Taking buPROPion HCl ER (SR) 150 MG Tablet Extended Release 12 Hour 1 tablet Orally Twice a day Taking Wellbutrin Taking LaMICtal 150 MG Tablet Oral Taking Albuterol Sulfate HFA 108 (90 Base) MCG/ACT Aerosol Solution 2 puffs Inhalation every 4 hrs , Notes to Pharmacist: disp one inhalerTaking SUMAtriptan Succinate 100 MG Tablet TAKE 1 TABLET BY MOUTH ONCE DAILY if NEEDED FOR MIGRAINE Orally Once a day DiscontinuedPaxlovid (300/100) 20 x 150 MG & [...] Objective: * Vitals: H t: 64.5, Wt: 132, BMI:22.31, BP: 119/77, HR: 82, Temp: 97.5, Wt-k.87. * Examination: G eneral Examination: GENERAL APPEARANCE: p leasant, well nourished, well developed, in no acute distress, calm and relaxed: woman. HEAD: a traumatic, normocephalic. EYES: e brenda, perrla, anicteric, conjugate. EARS: n ormal. NOSE: s eptum intact. ORAL CAVITY: n ormal, unremarkable. NECK/THYROID: n o jugular venous distention, no carotid bruit, thyroid normal, Supple. LYMPH NODES: n o enlarged lymph nodes,spleen normal. SKIN: n o suspicious lesions, anicteric. HEART: n o clicks, gallops, murmurs, or rubs, regular rhythm, S1, S2 normal, no s3, or vascular bruits. LUNGS: c lear to auscultation . BREASTS: N ot examined. ABDOMEN: b owel sounds normal, no ascites, no organomegaly, no mass. RECTAL EXAM: n ot examined. MUSCULOSKELETAL: e xtremities unremarkable, no clubbing, cyanosis [...] compensated at this time. 2 . M igraine without aura and without status migrainosus, not intractable - G43.009 N otes :She will continue on Imitrex.I have refilled that prescription and given her a larger supply. I have referred her to neurology for an expert opinion. 3 . R eactive depression - F32.9 N otes :Her depression is well controlled. She is compliant with her medications. She has had no suicidal thinking. 4 . A sthma due to environmental allergies - J45.909 N otes :She has not experienced any asthma in the recent past. She has medication. If necessary. Her lungs were clear today without wheezes, rales, rhonchi. 5 . P ain in right shoulder - M25.511 N otes :The pain continues. She was offered an orthopedic referral and will consider it. 6 . G astroesophageal reflux disease without esophagitis - K21.9 ?Notes :Her reflux symptoms are well controlled with bncr-[id number]-tgyjvem medications. Plan: * Treatment: 2. M igraine without aura and without status migrainosus, not intractable Referral To:[facility] Reason:Evaluate and Treat Increased Migraine 3. O thers Continue ProAir HFA Aerosol Solution, 108 (90 Base) MCG/ACT, 2 puffs as needed, Inhalation, every 6 hrs; C ontinue traZODone HCl Tablet, 50 MG, 1 tablet at bedtime as needed, Orally, Once a day; Continue buPROPion HCl ER (SR) Tablet Extended Release 12 Hour, 150 MG, 1 tablet, Orally, Twice a day; C ontinue Wellbutrin; C ontinue LaMICtal Tablet, 150 MG, Oral; C ontinue Albuterol Sulfate HFA Aerosol Solution, 108 (90 Base) MCG/ACT, 2 puffs, Inhalation, every 4 hrs, Notes to Pharmacist: disp one inhaler; S tart SUMAtriptan Succinate Tablet, 100 MG, 1 tablet if needed, may take second dose at least 2 hours after first, Orally, twice a day, 21 days, 42, Refills 11. ? * Procedure Codes: * Preventive Medicine: Counseling: S moking/Tobacco Use Patient counseled on the dangers of tobacco use and urged to quit. 0 05/22/2025 * Follow Up: 2 Weeks (Reason: Telehealth) * Images: * Sign off status: Completed true * Provider: Maritza Otto MD Date: 0 06/19/2025 Generated for Arianna almaguer/Nitza/eTransmscott on: 1 07:26 AM EDT History and Physical Notes * HPI (History of Present Illness) Category Sub-Category Detail Notes COVID-19 Screening Questions Have you had any new onset fever, chills, cough, congestion, sore throat, shortness of breath, muscle aches?: No Examination Category Sub-Category Detail Notes General Examination GENERAL APPEARANCE: pleasant , well nourished, well developed, in no acute distress, calm and relaxed: woman HEAD: atraumatic, normocep halic EYES: eomi, perrla, anicte patricia, conjugate EARS: normal NOSE: septum intact NECK/THYROID: no jugular venous di stention, no carotid bruit, thyroid normal, Supple HEART: no clicks, gallops, murmurs, or rubs, [...] lesion s, anicteric PERIPHERAL PULSES: normal BREASTS: Not examined MUSCULOSKELETAL: extremities unremark able, no clubbing, cyanosis or edema LYMPH NODES: no enlarged lymph no zackary,spleen normal RECTAL EXAM: not examined PSYCH: alert, oriented ORAL CAVITY: normal, unremarkable Consultation Request Notes Referral Date Referring Provider Referred Provider Not es 06/19/2025 Serg Otto Muhammad Evaluate a nd Treat Increased Migraine
--- OUTSIDE RECORDS SUMMARY | 2025-07-05 07:15 | XMS_ITS ---
Author Organization Serg Otto III, MD Address [address] [place] [address] [place] [phone] Care Team Providers Care Services Host Name Role Phone Dr. Serg Otto III Primary Care Provider Allergies Allergen (clinical drug ingredient) Drug/Non Drug Allergy documented on EMR Reaction Allergy Type Onset Date Status Mold Unknown Allergy Active Dust Mites Unknown Allergy Active shrimp allergenic extract Shrimp (Diagnostic) Unknown Drug Allergy Active REASON FOR VISIT Follow up Medications Medication SIG (Take, Route, Frequency, Duration) Notes Start Date End Date Status Albuterol Sulfate HFA 108 (90 Base) MCG/ACT [...] 6 hrs Active SUMAtriptan Succinate 100 MG 1 tablet if needed, may take second dose at least 2 hours after first Orally twice a day 06/19/2025 Active traZODone HCl 50 MG 1 tablet at bedtime as needed Orally Once a day Active Social History Tobacco Use: [...] non-user Ex-cigaret te smoker Vital Signs Temperature 98.1 degrees Fahrenheit 07/05/20 25 Blood pressure systolic 112 mm Hg 07/05/20 25 Blood pressure diastolic 68 mm Hg 025 Heart Rate 77 /min 07/05/2025 Height 64.5 in 07/05/2025 Weight 135 lbs 07/05/2025 BMI 22.81 kg/m2 07/05/2025 Encounters Encounter Location Date Provider Diagnosis Serg Otto III, MD [address] [place] [address] [place] [address] 07/05/2025 Serg Otto Bipolar affective disorder, remission status unspecified F31.9 ; Mixed hyperlipidemia E78.2 ; Overweight E66.3 ; Migraine without aura and without status migrainosus, not intractable G43.009 and Screening mammogram for breast cancer Z12.31 Assessments Encounter Date Diagnosis (ICD Code) Assessment Notes Treat ment Notes Treatment Clinical Notes 07/05/2025 Bipolar affective disorder, remission status unspecified (ICD-10 - F31.9) She will continue on her current therapies and see Dr. Salomon regularly. She is stable and compensated at this time. 07/05/2025 Mixed hyperlipidemia (ICD-10 - E78.2) 07/05/2025 Overweight (ICD-10 - E66.3) 07/05/2025 Migraine without aur a and without status migrainosus, not intractable (ICD-10 - G43.009) 07/05/2025 Screening mammogram for breast cancer (ICD-10 - Z12.31) Plan Of Treatment Medication Medication Name Sig Start Date Stop Date Notes Albuterol Sulfate HFA 108 (90 Base) MCG/ACT [...] every 6 hrs SUMAtriptan Succinate 100 MG 1 tablet if needed, may take second dose at least 2 hours after first Orally twice a day 06/19/2025 traZODone HCl 50 MG 1 tablet at bedtime as needed Orally Once a day Pending Test Test Name Order Date PROFILE, FASTING (COMPREHENSIVE METABOLI C) 07/05/2025 CBC w DIFF 07/05/2025 Lipid Panel 07/05/2025 Vitamin D 25-OH Total 07/05/2025 MM tomosynthesis screening BI 07/05/2025 Next Appt Details Follow Up: As Scheduled, Galina son: Annual Exam Provider Name:Serg Otto , 12/08/2025 04:00:00 PM, [address] [place] [address], [address], [address], Progress Notes * Nahomi BOO ADOB:[birth year] (59 yo F)Acc No.[id number]:07/05/2025 Progress Notes Patient: Nahomi ALVAREZ Provider: Maritza Otto MD :1965 A ge:59 Y S ex:Female Date:07/05/2025 Address:[address] [place], [place] [id number] Subjective: * Chief Complaints: * 1 . Follow up. * HPI: C OVID-19 Screening: luis alfredo betterwith imitrex and trazone. Questions H ave you had any new onset fever, chills, cough, congestion, sore throat, shortness of breath, muscle aches? N o * ROS: G eneral/Constitutional: pain o nly [...] appetite d enies.?Diarrhea d enies. H eartburn d enies. N ausea d enies. R ectal bleeding?denies. V omiting d enies. H ematology: bruising [...] Depressed mood d enies. * Medical History: B ipolar 1 disorder, Depression, unspecified depression type, Basal cell carcinoma of skin of other parts of face, Shoulder pain, Recovery, Atypical migraine without aura, GERD, Asthma. * Surgical History: t onsillectomy age 5 , mole removed from the nose bce mohs , [id number] , colonoscopy, Dr. Barnard, negative results 2018. * Hospitalization/Major Diagno stic Procedure: D enies Past Hospitalization. * Family History: F ather: alive 76 [...] smoker S he was born in the [facility]. 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 She recently moved from [place] to [place], [place]. Her previous name was Jasmeet. * Medications: T aking ProAir HFA 108 (90 Base) MCG/ACT Aerosol Solution 2 puffs as needed Inhalation every 6 hrs , Taking traZODone HCl 50 MG Tablet 1 tablet at bedtime as needed Orally Once a day , Taking buPROPion HCl ER (SR) 150 MG Tablet Extended Release 12 Hour 1 tablet Orally Twice a day , Taking Wellbutrin , Taking LaMICtal 150 MG Tablet Oral , Taking Albuterol Sulfate HFA 108 (90 Base) MCG/ACT Aerosol Solution 2 puffs Inhalation every 4 hrs , Notes to Pharmacist: disp one inhaler, Taking SUMAtriptan Succinate 100 MG Tablet 1 tablet if needed, may take second dose at least 2 hours after first Orally twice a day , Taking SUMAtriptan Succinate 100 MG Tablet TAKE 1 TABLET BY MOUTH ONCE DAILY if NEEDED FOR MIGRAINE Orally Once a day , Medication List reviewed and reconciled with the patient * Allergies: S hrimp (Diagnostic), Mold, Dust Mites. Objective: * Vitals: H t: 64.5, Wt: 135, BMI:22.81, BP: 112/68, HR: 77, Temp: 98.1, Wt-k.23. * Examination: G eneral Examination: GENERAL APPEARANCE: p leasant, well nourished, well developed, in no acute distress, calm and relaxed. HEAD: a traumatic, normocephalic. EYES: e brenda, [...] LUNGS: c lear to auscultation . BREASTS: no masses palpable bilaterally. ABDOMEN: b owel sounds normal, no ascites, [...] affective disorder, remission status unspecified - F31.9 N otes :She will continue on her current therapies and see Dr. Salomon regularly. She is stable and compensated at this time. 2 . M ixed hyperlipidemia - E78.2 3 . O verweight - E66.3? 4. M igraine without aura and without status migrainosus, not intractable - G43.009 5 . S creening mammogram for breast cancer - Z12.31 Plan: * Treatment: 2. M ixed hyperlipidemia L AB: PROFILE, FASTING (COMPREHENSIVE METABOLIC) L AB: CBC w DIFF L AB: Lipid Panel L AB: Vitamin D 25-OH Total 3. O verweight L AB: PROFILE, FASTING (COMPREHENSIVE METABOLIC) L AB: CBC w DIFF L AB: Lipid Panel L AB: Vitamin D 25-OH Total 4. M igraine without aura and without status migrainosus, not intractable L AB: PROFILE, FASTING (COMPREHENSIVE METABOLIC) L AB: CBC w DIFF L AB: Lipid Panel L AB: Vitamin D 25-OH Total 5. S creening mammogram for breast cancer I maging: MM tomosynthesis screening BI 6. O thers Continue ProAir HFA Aerosol Solution, [...] hrs, Notes to Pharmacist: disp one inhaler; C ontinue SUMAtriptan Succinate Tablet, 100 MG, 1 tablet if needed, may take second dose at least 2 hours after first, Orally, twice a day. * Follow Up: A s Scheduled (Reason: Annual Exam) * Images: * The named appointment provid er may or may not be the originator of this progress note, and it is not deemed complete until electronically signed by the appointment provider. Sign off status: Pending * Provider: aMritza Otto MD Date: Generated for Arianna almaguer/Nitza/[place] on: 07:25 AM EDT History and Physical Notes * HPI (History of Present Illness) Category Sub-Category Detail Notes COVID-19 Screening Questions Have you had any new onset fever, chills, cough, congestion, sore throat, shortness of breath, muscle aches?: No Examination Category Sub-Category Detail Notes General Examination GENERAL APPEARANCE: pleasant , well nourished, well developed, in no acute distress, calm and relaxed HEAD: atraumatic, normocep halic EYES: eomi, perrla, [...] lesion s, anicteric PERIPHERAL PULSES: normal BREASTS: no masses palpable b ilaterally MUSCULOSKELETAL: extremities unremark able, no clubbing, cyanosis or edema LYMPH NODES: no enlarged lymph no zackary,spleen normal RECTAL EXAM: not examined PSYCH: alert, oriented ORAL CAVITY: normal, unremarkable
--- OUTSIDE RECORDS SUMMARY | 2025-07-07 07:26 | XMS_ITS | Patient Health Record ---
Author Organization Serg Otto III, MD Address [address] [place] [address] [place] [address] Care Team Providers Care Storage Specialist Name Role Phone Dr. Serg Otto III Primary Care Provider Allergies Allergen (clinical drug ingredient) Drug/Non Drug Allergy documented on EMR Reaction Allergy Type Onset Date Status Mold Unknown Allergy Active Dust Mites Unknown Allergy Active shrimp allergenic extract Shrimp (Diagnostic) Unknown Drug Allergy Active Results Component Value Reference Range Notes Complete Blood Count Auto Di ff Reviewed date:12/07/2024 04:13:14 PM Interpretation: Performing Lab:[facility], [address] [place] [phone] Notes/Report: White Blood Count 7.8 4.8-10.8 X10*3/uL Red Blood Count 4.56 4.20-5.50 X10*6/uL Hemoglobin 14.4 12.0-16.0 g/dl Hematocrit 41.4 37.0-47.0 % Mean Corpuscular Volume 90.8 80.0-98.0 fL Mean Corpuscular Hemoglobin 31.6 27.0-33.0 pg Mean Corpuscular HGB Conc 34.8 31.0-35.0 g/dl Red Cell Distribution Width 11.9 11.0-16.0 % Platelet Count 252 160-400 X10*3/uL Mean Platelet Volume 9.7 9.4-12.3 fL Neutrophils Percent Auto 50.8 45-73 % Imm Gran Pct Auto 0.1 0.0-0.4 % Lymphocytes Percent Auto 36.2 20-40 % Monocytes Percent Auto 9.7 2-11 % Eosinophils Percent Auto 2.7 0-4 % Basophils Percent Auto 0.5 0-2 % NRBC Pct Auto 0.0 0.0-0.2 /100WBC Neutrophils Absolute Auto 4.0 2.0-8.3 x10*3/u L Imm Gran Abs Auto 0.01 0.00-0.03 X10*3/uL Lymphocytes Absolute Auto 2.8 1.2-4.9 X10*3/u L Monocytes Absolute Auto 0.8 0.1-1.2 X10*3/uL Eosinophils Absolute Auto 0.2 0.0-0.4 X10*3/u L Basophils Absolute Auto 0.0 0.0-0.2 X10*3/uL NRBC Abs Auto 0.000 0.0-0.012 X10*3/uL Comprehensive Simla. Panel Fa st Reviewed date:12/07/2024 04:13:14 PM Interpretation: Performing Lab:[facility], [address] [place] [phone] Notes/Report: Sodium 140 135-145 mmol/L Potassium 4.2 3.3-5.1 mmol/L Chloride 104 96-108 mmol/L Carbon Dioxide 27 22-29 mmol/L Anion Gap 13 12-20 Blood Urea Nitrogen 15 9-16 mg/dL Creatinine 0.79 0.5-1.4 mg/dL Estimated Glomerular Filt Rate > 60 Chronic Kidney Disease: Estimated GFR < 60 mL/min/1.73m2 Severe Kidney Disease: Estimated GFR < 15 mL/min/1.73m2 Glucose Fasting 93 60-99 mg/dL Calcium 9.4 8.4-10.2 mg/dL Bilirubin Total 0.3 0.0-1.0 mg/dL Aspartate Amino Transferase 21 5-31 U/L Alanine Aminotransferase 26 0-31 U/L Total Protein 7.4 6.5-8.0 g/dL Albumin Level 4.3 3.5-5.0 g/dL Alkaline Phosphatase 69 39-117 U/L Lipid Panel Reviewed date:12/07/2024 04:13:14 PM Interpretation: Performing Lab:[facility], [address] [place] [phone] Notes/Report: Triglycerides 76 <150 mg/dL Desirable Triglyceride: less than 150 mg/dL Borderline High Triglyceride 150-199 mg/dL High Triglyceride: 200-499 mg/dL Very High Triglyceride: greater than or equal to 5OO mg/dL Cholesterol 203 <200 mg/dL Desirable Cholesterol: less than 200 mg/dL Borderline High Cholesterol: 200-239 mg/dL High Cholesterol: greater than 239 mg/dL LDL Cholesterol Calculated 120 <100 mg/dL Desirable LDL: less than 100 mg/dL Near Optimal/Above Optimal LDL: 110-129 mg/dL Borderline High LDL: 130-159 mg/dL High LDL: 160-189 mg/dL Very High LDL: greater than or equal to 190 mg/dL HDL Cholesterol 68 >40 mg/dL Desirable HDL: greater than 40 mg/dL Note: This HDL assay may give artificially low results in patients with liver disease. Reason For Referral Reason Evaluate and Treat Increased Migraine Diagnosis 1 Migraine without aur a and without status migrainosus, not intractable (G43.009) Referral Organization Serg Otto III, MD Referring Provider First Name Serg Referring Provider Last Name Clarita Referring Provider Speciality Internal M edicine Referred Provider Anjel Henry Referred Provider Specialty Neurology General Notes D, Mikayla 06/23/2025 04:22:03 PM > referral and progress note faxed. Referral Priority Routine Medications Medication SIG (Take, Route, Frequency, Duration) Notes Start Date End Date Status ProAir HFA 108 (90 Base) MCG/ACT 2 puffs as needed Inhalation every 6 hrs Active SUMAtriptan Succinate 100 MG 1 tablet if needed, may take second dose at least 2 hours after first Orally twice a day 06/19/2025 Active Albuterol Sulfate HFA 108 (90 Base) MCG/ACT 2 puffs Inhalation every 4 hrs disp one inhaler 12/07/2024 Active SUMAtriptan Succinate 100 MG TAKE 1 TABLET BY MOUTH ONCE DAILY if NEEDED FOR MIGRAINE Orally Once a day Active Wellbutrin Active LaMICtal 150 MG Oral Acti ve traZODone HCl 50 MG 1 tablet at bedtime as needed Orally Once a day Active buPROPion HCl ER (SR) 150 MG 1 tablet Orally Twice a day Active Immunizations Vaccine Route Administration Date Status Comme nts COVID- 19 Vaccine Unknown 08/04/2021 Administered COVID- 19 Vaccine Unknown 01/31/2022 Administered COVID- 19 Vaccine Unknown 09/07/2022 Administered Influenza, quad Unknown 08/10/2022 Administered Influenza, quad Unknown 07/22/2023 Administered COVID Moderna Bivalent Unknown 09/07/2022 Administered Social History Tobacco Use: Social History Observation [...] Problem Status W/U Status Risk Notes Problem 0517997 Former smoker (Z87.891) Active confirmed She is highly motivated not to smoke and we discussed a plan to prevent relapse in times of stress or illness. Problem Postmenopausal (11018302) Postmenopausal (Z78.0) Active confirmed He is mildly symptomatic and it waas not one of her complaints. We discussed bone density measurements and BLOW PIT HELPER visits in menopause. Problem 399815378 Overweight (E66.3) Active confirmed She has lost 11 pounds and is only slightly overweight with a body mass index of 26. We have reviewed her weight loss strategy. She will lose weight at a rate of one half of a pound per week there were healthy Mediterranean diet combined with regular physical activity. Problem 648984971 Mixed hyperlipidemia (E78.2) Active confirmed Her total cholesterol is 202 and her weight is in the normal range. I recommended a healthy Mediterranean diet and regular physical activity. Problem 32831243 Other chronic pain (G89.29) Active confirmed Recently, she has experienced Kathy pain and is doing well. Problem 99082079846529153 Pain in right shoulder (M25.511) Active confirmed The pain continues. She was offered an orthopedic referral and will consider it. Problem 325855882 Gastroesophageal reflux disease without esophagitis (K21.9) Active confirmed Her reflux symptoms are well controlled with ubrr-hov-aeimt er medications. Problem 82577246 Bipolar affective disorder, remission status unspecified (F31.9) Active confirmed She will continue on her current therapies and see Dr. Salomon regularly. She is stable and compensated at this time. Problem Dysphagia (86481280) Dysphagia (R13.10) Active confirmed She gives a history of a Schatzki ring. A barium swallow has been ordered to assess this problem. She was advised to consume foods that do not require significant chewing Problem 078757700 Asthma due to environmental allergies (J45.909) Active confirmed She has not experienced any asthma in the recent past. She has medication. If necessary. Her lungs were clear today without wheezes, rales, rhonchi. Problem 15613686 Reactive depression (F32.9) Active confirmed Her depression is well controlled. She is compliant with her medications. She has had no suicidal thinking. Problem 291104392 Migraine without aura and without status migrainosus, not intractable (G43.009) Active confirmed She will continue on Imitrex.I have refilled that prescription and given her a larger supply. I have referred her to neurology for an expert opinion. Vital Signs Heart Rate 77 /min 07/05/2025 Temperature 98.1 degrees Fahrenheit 07/05/2025 Blood pressure diastolic 68 mm Hg 07/05/2025 Height 64.5 in 07/05/2025 Blood pressure systolic 112 mm Hg 07/05/2025 Weight 135 lbs 07/05/2025 BMI 22.81 kg/m2 07/05/2025 Encounters Encounter Location Date Provider Diagnosis Serg Otto III, MD [address] [place] [address] [place] [address] 07/05/2025 Serg Otto Bipolar affective disorder, remission status unspecified F31.9 ; Mixed hyperlipidemia E78.2 ; Overweight E66.3 ; Migraine without aura and without status migrainosus, not intractable G43.009 and Screening mammogram for breast cancer Z12.31 Serg Otto III, MD [address] [place] [address] [place] [address] 12/07/2024 Serg Otto Mixed hyperlipidemia E78.2 ; Bipolar affective disorder, remission status unspecified F31.9 ; Postmenopausal Z78.0 ; Reactive depression F32.9 ; Asthma due to environmental allergies J45.909 ; Pain in right shoulder M25.511 and Former smoker Z87.891 Serg Otto III, MD [address] [place] [address] [address] [place], [place] [address] 06/19/2025 Serg Otto Bipolar affective disorder, remission [...] stable and compensated at this time. 12/07/2024 Mixed hyperlipidemia (ICD-10 - E78.2) Her total cholesterol is 202 and her weight is in the normal range. I recommended a healthy Mediterranean diet and regular physical activity. 12/07/2024 Bipolar affective disorder, remission status unspecified (ICD-10 - F31.9) She will continue on her current therapies and see Dr. Salomon regularly. She is stable and compensated at this time. 06/19/2025 Bipolar affective disorder, remission status unspecified [...] her to neurology for an expert opinion. 07/05/2025 Mixed hyperlipidemia (ICD-10 - E78.2) 12/07/2024 Postmenopausal (ICD- 10 - Z78.0) He is mildly symptomatic and it waas not one of her complaints. We discussed bone density measurements and BLOW PIT HELPER visits in menopause. 06/19/2025 Reactive depression (ICD-10 - F32.9) Her depression is well controlled. She is compliant with her medications. She has had no suicidal thinking. 07/05/2025 Overweight (ICD-10 - E66.3) 12/07/2024 Reactive depression (ICD-10 - F32.9) Her depression is well controlled. She is compliant with her medications. She has had no suicidal thinking. 06/19/2025 Asthma due to environmental allergies (ICD-10 - J45.909) She has not experienced any asthma in the recent past. She has medication. If necessary. Her lungs were clear today without wheezes, rales, rhonchi. 07/05/2025 Migraine without aur a and without status migrainosus, not intractable (ICD-10 - G43.009) 12/07/2024 Asthma due to environmental allergies (ICD-10 - J45.909) She has not experienced any asthma in the recent past. She has medication. If necessary. Her lungs were clear today without wheezes, rales, rhonchi. 06/19/2025 Pain in right should er (ICD-10 - M25.511) The pain continues. She was offered an orthopedic referral and will consider it. 07/05/2025 Screening mammogram for breast cancer (ICD-10 - Z12.31) 12/07/2024 Pain in right should er (ICD-10 - M25.511) The pain continues. She was offered an orthopedic referral and will consider it. 06/19/2025 Gastroesophageal reflux disease without esophagitis (ICD-10 - K21.9) Her reflux symptoms are well controlled with kvej-pkw-xtzfqrz medications. 12/07/2024 Former smoker (ICD-1 0 - Z87.891) She is highly motivated not to smoke and we discussed a plan to prevent relapse in times of stress or illness. Plan Of Treatment Pending Test Test Name Order Date PROFILE, FASTING (COMPREHENSIVE METABOLI C) 12/07/2024 PROFILE, FASTING (COMPREHENSIVE METABOLI C) 03/30/2018 PROFILE, FASTING (COMPREHENSIVE METABOLI C) 06/03/2023 PROFILE, FASTING (COMPREHENSIVE METABOLI C) 10/05/2019 PROFILE, FASTING (COMPREHENSIVE METABOLI C) 11/25/2021 PROFILE, FASTING (COMPREHENSIVE METABOLI C) 12/01/2022 PROFILE, FASTING (COMPREHENSIVE METABOLI C) 12/07/2023 PROFILE, FASTING (COMPREHENSIVE METABOLI C) 10/04/2018 PROFILE, FASTING (COMPREHENSIVE METABOLI C) 08/27/2021 PROFILE, FASTING (COMPREHENSIVE METABOLI C) 07/05/2025 PROFILE, FASTING (COMPREHENSIVE METABOLI C) 03/01/2020 PROFILE, FASTING (COMPREHENSIVE METABOLI C) 06/02/2022 LIPID PANEL 03/01/2020 LIPID PANEL 06/02/2022 LIPID PANEL 03/30/2018 LIPID PANEL 06/03/2023 LIPID PANEL 10/05/2019 LIPID PANEL 10/04/2018 FREE T4 (FT4) 03/01/2020 TSH (THYROID STIMULATING HORMONE) 2023 TSH (THYROID STIMULATING HORMONE) 2019 CBC w DIFF 08/27/2021 CBC w DIFF 07/05/2025 CBC w DIFF 10/04/2018 CBC w DIFF 12/07/2024 CBC w DIFF 06/02/2022 CBC w DIFF 03/30/2018 CBC w DIFF 11/25/2021 CBC w DIFF 03/01/2020 CBC w DIFF 06/03/2023 CBC w DIFF 10/05/2019 CBC w DIFF 12/01/2022 FREE T3 (FT3) 12/01/2023 XR BARIUM SWALLOW-ESOPHAGUS 09/02/2023 XR BARIUM SWALLOW, MODIFIED VIDEO 2022 BONE DENSITY DEXA 12/07/2024 CBC WITH AUTO DIFF 12/07/2023 Lipid Panel 08/27/2021 Lipid Panel 07/05/2025 Lipid Panel 12/07/2024 Lipid Panel 11/25/2021 Lipid Panel 12/01/2022 Lipid Panel 12/07/2023 Vitamin D 25-OH Total 07/05/2025 MM tomosynthesis screening BI 07/05/2025 RT sleep home study type III 12/18/2022 Next Appt Details Provider Name:Serg Otto , 12/08/2025 04:00:00 PM, [address] [place] [address] , AARON [place], [place], [address], Insurance Providers Payer Name Payer Address Payer Phone Subscriber Number Group Number Insured Name Patient Relationship to Insured Coverage Start Date Coverage End Date [facility] [address] [place], [place] [id number] Nahomi Love Self - patient is the insured Medical (General) History Medical History History ICD Code Bipolar 1 disorder F31.9 Depression, unspecified depression type F32.9 Basal cell carcinoma of skin of other pa rts of face C44.319 shoulder pain recovery atypical migraine without aura GERD asthma Surgical History Surgery Date(Month/Year) colonoscopy, Dr. Barnard, negative resul ts 2017 [id number] mole removed from the nose bce mohs tonsillectomy age 5
--- OUTSIDE RECORDS SUMMARY | 2025-07-07 07:27 | XMS_ITS | Patient Health Record ---
Author Organization [facility] [facility] Address [address] [place] [address] Care Team Providers Care Manager Wastewater Name Role Phone LALO WOLF MD Primary Care Provider Unavailab benton HOFFMARCO ANTONIO Unavailable [phone] Allergies Allergen (clinical drug ingredient) Drug/Non Drug Allergy documented on EMR Reaction Allergy Type Onset Date Status Shellfish (FN) Shrimp (uncoded) rash Allergy Active Reason For Referral No Information Medications Medication SIG (Take, Route, Frequency, Duration) Notes Start Date End Date Status Yuvafem 10 MCG 1 tablet Vaginal Two times a Week; Duration: 90 days This is the maintenance dose, to start after the starting dose 03/14/2025 Active Yuvafem 10 MCG 1 tablet Vaginal nightly; Duration: 14 days This is the starting dose, to be followed by the maintenance dose 03/14/2025 Active LaMICtal 150 MG 1 tablet Orally Active Wellbutrin 300 mg Ac tive traZODone HCl 50 MG Orally Active Imitrex 100 MG 1 tablet as needed Orally Active Social History Tobacco Use: Social History Observation Description Date Details (start date - stop date) Former Smoker NA - NA Tobacco use other than smoking: Question Answer Notes Are you an other tobacco user? No AUDIT-C (Standard) Question Answer Notes Did you have a drink containing alcohol in the p ast year? No Points 0 Interpretation Negative Tobacco Control (Standard) Question Answer Notes Tobacco use: Former smoker How long has it been since you last smoked? 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 Problems Problem Type SNOMED Code ICD Code Onset Dates Problem Status W/U Status Risk Notes Problem Postmenopausal atrophic vaginitis (14978772) Postmenopausal atrophic vaginitis (N95.2) Active confirmed Problem Basal cell carcinoma of nose (016426156) Basal cell carcinoma of skin of nose (C44.311) Active confirmed Problem Bipolar disorder (66199128) Bipolar disorder, unspecified (F31.9) Active confirmed Problem Migraine without aura, not refractory (disorder) (472939090) Migraine, unspecified, not intractable, without status migrainosus (G43.909) Active confirmed Problem Uncomplicated asthma (disorder) (619925342) Unspecified asthma, uncomplicated (J45.909) Active confirmed Problem COVID-19 (132050543) COVID-19 (U07.1) Active confirmed Vital Signs Temperature 97.4 degrees Fahrenheit 03/14/2025 Blood pressure diastolic 70 mm Hg 03/14/2025 Height 65 in 03/14/2025 Blood pressure systolic 116 mm Hg 03/14/2025 Weight 131 lbs 03/14/2025 BMI 21.8 kg/m2 03/14/2025 Encounters Encounter Location Date Provider Diagnosis [address] [address] 03/14/2025 MARCO ANTONIO HOFF Encounter for gynecological examination (general) (routine) without abnormal findings Z01.419 ; Encounter for screening mammogram for malignant neoplasm of breast Z12.31 and Postmenopausal atrophic vaginitis N95.2 Assessments Encounter Date Diagnosis (ICD Code) Assessment Notes Treatment Notes Treatment Clinical Notes Section Notes 03/14/2025 Encounter for gynecological examination (general) (routine) without abnormal findings (ICD-10 - Z01.419) During the visit, the following areas of concern were addressed: Discussed cervical cancer screening with either cytology alone every 3 years or high risk HPV co-testing every 5 years as per ASCCP guidelines. Advised continued annual pelvic exams. Patient encouraged to increase her level of exercise. SBE technique encouraged/tau ght. Patient reminded when annual mammogram is due. Patient encouraged to keep colon screening up to date. 03/14/2025 Encounter for screening mammogram for malignant neoplasm of breast (ICD-10 - Z12.31) 03/14/2025 Postmenopausal atrophic vaginitis (ICD-10 - N95.2) Plan Of Treatment Pending Test Test Name Order Date ANTI-HEPATITIS C 04/20/2018 ANTI-HEPATITIS C 04/11/2020 CHLAMYDIA GC AMP PROBE 04/11/2020 HEP. B SURF. AG 04/20/2018 HEP. B SURF. AG 04/11/2020 THIN PREP,HPV,DREW IF HPV+ (>29YR)(DIAG) 03/03/2023 THIN PREP,HPV,DREW IF HPV+/CYT-,CT/GC(>2 9YR)(SCRN) 04/20/2018 MM Digital Mammo Screening 04/11/2020 SYPHILIS TESTING 04/20/2018 SYPHILIS TESTING 04/11/2020 HIV AB-AG 4TH GENERATION 04/11/2020 HIV AB-AG 4TH GENERATION 04/20/2018 MM Digital Screening Mammogram 3D 2023 MM Digital Screening Mammogram 3D 2024 MM Digital Screening Mammogram 3D 2022 Next Appt Details Provider Name:MARCO ANTONIORadha Agustin, 03/15/2026 03:30:00 PM, [address], [address], [place], [address], Insurance Providers Payer Name Payer Address Payer Phone Subscriber Number Group Number Insured Name Patient Relationship to Insured Coverage Start Date Coverage End Date [employer] [address] [place] [address] [id number] MARCO ANTONIO DOAN Self - patient is the insured Medical (General) History Medical History History ICD Code Bipolar disorder, unspecified F31.9 Migraine, unspecified, not intractable, without status migrainosus G43.909 Unspecified asthma, uncomplicated J45.90 9 Basal cell carcinoma of skin of nose C44 .311 COVID-19 U07.1 Postmenopausal atrophic vaginitis N95.2 Surgical History Surgery Date(Month/Year) child 1998 wisdom teeth extraction 1988 right thumb surgery - benign tumor 1994 basal cell carcinoma of nose/reconstruct ion 2013 endoscopy 12/2023 colonoscopy Hospitalization History Reason Date(Month/Year) See Surigical Hx
--- NOTE | 2025-07-07 07:37 | MHC.OFFVIS ---
Vital Signs 07/07/25 07:40 Height 5 ft 5 in Weight 136 lb BMI 22.6 BP 104/62 Blood Pressure Location Rt brachial Position Sitting Pulse 81 Pulse Source Pulse Oximeter Pulse Oximetry (%) 98 Oxygen Delivery Method Room Air Intake Visit Reasons: migraine Intake Note: Patient presents for migraine. Patient states pre menopause got really bad daily migraines since few months ago(since lowering her trazodone)With trazodone she is getting 2 migraines a week. Nausea with dizziness associated with migraines. Usual starts in one of the temples. Sumatriptan works to get rid of it. Accompanied by: Self / Same As Patient Allergies mite-Dermatophagoides pteronyssinus (dust mite - ) Allergy (Unknown, Verified 07/07/25 07:41) Unknown mold Allergy (Unknown, Verified 07/07/25 07:41) Unknown shrimp Allergy (Unknown, Verified 07/07/25 07:41) Unknown Medication List - Last Reconciled 07/07/25 by Taryn Rodriguez, [facility] albuterol sulfate 90 mcg/actuation 2 puffs inhalation Q4H atogepant (Qulipta) 60 mg PO DAILY 30 days bupropion HCl SR 150 mg PO BID estradiol (Yuvafem) 10 mcg vaginal BEDTIME lamotrigine (Lamictal) 150 mg PO DAILY lorazepam 0.5 mg PO BID PRN sumatriptan succinate 100 mg PO DIRECTED trazodone 50 mg PO BEDTIME HPI Comments Details: Nahomi is a 59-year-old female patient with a past medical history of bipolar 1 disorder, depression, asthma, GERD who is presenting upon referral for a diagnosis of migraine without aura. Nahomi tells me today that her migraines started in her 20s and in adulthood they have gotten worse. In addition to migraines, also experiencing frequent headaches upon awakening in the morning. Her headaches are occurring an average of 4 days per week she has migraine-type headaches 2-3 days per week. Headaches that occur in the morning upon awakening typically bifrontal lasting a couple of hours and are not associated with any nausea, dizziness, light sensitivity, or sound sensitivity. They generally resolve on their own. Her migraine-type headaches that occur 2-3 times per week can last days if she does not take her sumatriptan. With sumatriptan, her headaches generally last no more than 3 hours depending on when she takes the sumatriptan from start of the headache. She finds that sumatriptan to be very effective. These types of headaches are unilateral to the temporal areas (not generally favoring 1 side), and are often associated with nausea and sensitivity to light. Rarely when headaches are very severe we will see have vomiting. These headaches are sharp and throbbing. She denies any visual auras though she does have a prodrome of significant somnolence and fatigue. She has not noticed a correlation and her trazodone was her headache and migraine frequency. She found that when she weaned off of her trazodone her headaches got significantly worse and now that she is back to trazodone 50 mg at night, her headaches are slightly better. Headache characteristics: Time of onset: In her 20s Location: Headaches are bifrontal and migraines are typically unilateral to the temporal areas Radiation:No Positional component:No Character: Morning headaches can be dull and aching and migraines can be pressure-like and stabbing Severity: The migraines can reach 10/10 Duration: Migraine headaches could last days if left unmedicated. With sumatriptan generally headaches resolve within 3 hours. Frequency: Headaches 4 times per week and migraine-type headaches 2-3 times per week Acute aggravating factors: Stress Acute relieving factors:Rest and good sleep Associated symptoms: Nausea and light sensitivity Aura:No Relation to menses: Migraines in the past were related to her menses. She is no longer having a menses. 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 Denies clenching or grinding History of head injury: None Past medication trials: Propranolol- Caused mood changes Topiramate- No significant difference Amitriptyline- Brad significant difference Venlafaxine- No improvement Gabapentin- Caused mood changes Aimovig- caused severe coughing Magnesium- Takes nightly Prior workup: 12/2022 home sleep study: Normal without any evidence of sleep apnea. FOR[facility]LY [facility] Medical History Asthma Depression Bipolar disorder Migraine Review of Systems Const All systems reviewed & are unremarkable except as noted in HPI and below Physical Exam Vital Signs: Last Vital Signs Pulse 81 07/07/25 07:40 BP 104/62 07/07/25 07:40 Pulse Ox 98 07/07/25 07:40 Oxygen Delivery Method Room Air 07/07/25 07:40 BMI result Body Mass Index 22.6 Const General: cooperative, healthy appearing, comfortable and no acute distress Nutritional Appearance: well nourished Orientation/consciousness: patient oriented x3 Limitations: no limitations HEENT Head: Yes normal to inspection and Yes normocephalic Eyes General: appearance normal, both eyes and all related structures Visual Burgos: normal visual burgos by confrontation Alignment and Position: alignment normal Periorbital: periorbital findings normal Eyelids: Yes eyelids normal Conjunctivae: conjunctivae normal Sclerae: sclerae normal Neuro General: patient oriented x3 and deep tendon reflexes 2+ bilaterally Cranial nerves: Yes CN's II-XII intact bilaterally and Yes Facial sensation intact/muscles of mastication intact Cognition (Neuro): normal cognition Gait exam (Neuro): Normal gait present Motor exam (neuro): 5/5 motor strength present throughout and no tremor noted Sensory Exam: double simultaneous stimulation for sensation normal Romberg Test: Negative Pupils: Normal pupillary reactivity/response: bilateral Psych Appearance: grossly normal Mental Status: mental status grossly normal Speech and movement: Normal speech and movement present and Clear speech present Affect: normal affect Attitude: cooperative Thought process: Normal thought process present Thought content: Normal thought content present Insight: Good insight present (Psych) Judgement: Good judgement present (Psych) Assessment & Plan Assessment & Plan (1) Snoring: Code(s): R06.83 - Snoring Category: Medical (2) Deviated septum: Code(s): J34.2 - Deviated nasal septum Category: Medical (3) Morning headache: Code(s): R51.9 - Headache, unspecified Category: Medical (4) Migraine without aura and without status migrainosus, not intractable: Code(s): G43.009 - Migraine without aura, not intractable, without status migrainosus Category: Medical Plan Nahomi is a 59-year-old female patient with a past medical history of bipolar 1 disorder, depression, asthma, GERD who is presenting upon referral for a diagnosis of migraine without aura. Migraines are significantly impacting her day-to-day life and she is also having some frequent headaches upon awakening. Her home sleep study in the past was negative however she does report snoring and a deviated septum. I have some suspicion that sleep apnea may have gone on recognized during home sleep study. I will order an in-lab study. In the past, she has tried numerous therapies for migraine prevention including Aimovig which caused a significant cough. I would like to try her on an oral GEPANT as if she does have a reaction to this there is a shorter half-life compared to the injectable therapies which can last up to a month in your system. We also discussed increasing hydration as a means for prevention. For acute therapy, she is happy with the sumatriptan and can continue on this. We will meet back in 2 months to evaluate the efficacy of the Qulipta and in the meantime obtain the in-lab sleep study to rule out the possibility of undiagnosed sleep apnea that could perhaps aggravate primary headache types. -In-lab sleep study -Trial of Qulipta 60mg daily for migraine prevention - Sample box with 4 tablets given today (lot number:[id number], exp:05/2026). -Increase hydration -Continue sumatriptan 100mg as needed for acute therapy Orders: Orders RT PSG in-lab sleep study Today J34.2 - Deviated nasal septum, R06.83 - Snoring, R51.9 - Headache, unspecified Medications: New atogepant (Qulipta) 60 mg PO DAILY 30 tabs 5RF 30 days Coding Level of Care Code New Pt Level 4 (94070) Diagnoses Snoring R06.83 Deviated septum J34.2 Morning headache R51.9 Migraine without aura and without status migrainosus, not intractable G43.009
[2025-07-07 07:40] VITALS: BP 104/62; PULSE 81; O2SAT 98; BMI 22.6
== END 2025-07-07 08:24 | disposition home or self-care (01) ==
LOC: HO.HSM 07:25
PROVIDERS: PCP Internal Medicine Medical Oncology; Visit Provider Nurse Practitioner
DX: R06.83 Snoring (principal); J34.2 Deviated nasal septum; R51.9 Headache, unspecified; G43.009 Migraine without aura, not intractable, without status migrainosus
CPT/HCPCS: 99204

== ENCOUNTER 2025-09-04 09:32 | Outpatient (AMB) | payer BC, SELFPAY ==
--- NOTE | 2025-09-04 09:34 | MHC.OFFVIS ---
Vital Signs 09/04/25 09:37 Height 5 ft 5 in Weight 130 lb BMI 21.6 BP 112/78 Blood Pressure Location Rt brachial Position Sitting Respiration 16 Pulse 78 Pulse Oximetry (%) 95 Oxygen Delivery Method Room Air Intake Visit Reasons: 2m F/U migraine Insurance Defense Attorney Required: No Allergies mite-Dermatophagoides pteronyssinus (dust mite - ) Allergy (Unknown, Verified 09/04/25 09:38) Unknown mold Allergy (Unknown, Verified 09/04/25 09:38) Unknown shrimp Allergy (Unknown, Verified 09/04/25 09:38) Unknown HPI Comments Details: Nahomi is a 59-year-old female patient with a past medical history of bipolar 1 disorder, depression, asthma, GERD who is presenting for a follow-up visit for a diagnosis of migraine without aura. Nahomi explained at the time of her last vistit that her migraines started in her 20s and in adulthood they have gotten worse. In addition to migraines, also experiencing frequent headaches upon awakening in the morning. Her headaches are occurring an average of 4 days per week she has migraine-type headaches 2-3 days per week. Headaches that occur in the morning upon awakening typically bifrontal lasting a couple of hours and are not associated with any nausea, dizziness, light sensitivity, or sound sensitivity. They generally resolve on their own. Her migraine-type headaches that occur 2-3 times per week can last days if she does not take her sumatriptan. With sumatriptan, her headaches generally last no more than 3 hours depending on when she takes the sumatriptan from start of the headache. She finds that sumatriptan to be very effective. These types of headaches are unilateral to the temporal areas (not generally favoring 1 side), and are often associated with nausea and sensitivity to light. Rarely when headaches are very severe we will see have vomiting. These headaches are sharp and throbbing. She denies any visual auras though she does have a prodrome of significant somnolence and fatigue. She has not noticed a correlation and her trazodone was her headache and migraine frequency. She found that when she weaned off of her trazodone her headaches got significantly worse and now that she is back to trazodone 50 mg at night, her headaches are slightly better. At the time of our last visit I ordered Qulipta 60 mg daily migraine prevention after reviewing her previous medication trials. She tells me today that she had some improvement in her headaches including a reduction in the frequency to 3-4 days per week opposed to nearly daily however she developed sciatic pain and shoulder pain after starting the medication. She stopped some medication in her symptoms improved in upon restart of the medication her symptoms came back. She has since self-discontinued the medication. She also has a date for her upcoming sleep study which was ordered at time of last visit given her history of insomnia and snoring. Headache characteristics: Time of onset: In her 20s Location: Headaches are bifrontal and migraines are typically unilateral to the temporal areas Radiation:No Positional component:No Character: Morning headaches can be dull and aching and migraines can be pressure-like and stabbing Severity: The migraines can reach 10/10 Duration: Migraine headaches could last days if left unmedicated. With sumatriptan generally headaches resolve within 3 hours. Frequency: Headaches 4 times per week and migraine-type headaches 2-3 times per week Acute aggravating factors: Stress Acute relieving factors:Rest and good sleep Associated symptoms: Nausea and light sensitivity Aura:No Relation to menses: Migraines in the past were related to her menses. She is no longer having a menses. 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 Denies clenching or grinding History of head injury: None Past medication trials: Propranolol- Caused mood changes Topiramate- No significant difference Amitriptyline- Brad significant difference Venlafaxine- No improvement Gabapentin- Caused mood changes Aimovig- caused severe coughing Magnesium- Takes nightly Qulipta-joint pain Prior workup: 12/2022 home sleep study: Normal without any evidence of sleep apnea. [facility] Medical History Asthma Depression Bipolar disorder Migraine Review of Systems Const All systems reviewed & are unremarkable except as noted in HPI and below Physical Exam Vital Signs: Last Vital Signs Pulse 78 09/04/25 09:37 Resp 16 09/04/25 09:37 BP 112/78 09/04/25 09:37 Pulse Ox 95 09/04/25 09:37 Oxygen Delivery Method Room Air 09/04/25 09:37 BMI result Body Mass Index 21.6 Const General: cooperative, healthy appearing, comfortable and no acute distress Nutritional Appearance: well nourished Orientation/consciousness: patient oriented x3 Limitations: no limitations HEENT Head: Yes normal to inspection and Yes normocephalic Eyes General: appearance normal, both eyes and all related structures Visual Sosa: normal visual sosa by confrontation Alignment and Position: alignment normal Periorbital: periorbital findings normal Eyelids: Yes eyelids normal Conjunctivae: conjunctivae normal Sclerae: sclerae normal Neuro General: patient oriented x3 and deep tendon reflexes 2+ bilaterally Cranial nerves: Yes CN's II-XII intact bilaterally and Yes Facial sensation intact/muscles of mastication intact Cognition (Neuro): normal cognition Gait exam (Neuro): Normal gait present Motor exam (neuro): 5/5 motor strength present throughout and no tremor noted Sensory Exam: double simultaneous stimulation for sensation normal Romberg Test: Negative Pupils: Normal pupillary reactivity/response: bilateral Psych Appearance: grossly normal Mental Status: mental status grossly normal Speech and movement: Normal speech and movement present and Clear speech present Affect: normal affect Attitude: cooperative Thought process: Normal thought process present Thought content: Normal thought content present Insight: Good insight present (Psych) Judgement: Good judgement present (Psych) Assessment & Plan Assessment & Plan (1) Snoring: Code(s): R06.83 - Snoring Category: Medical (2) Deviated septum: Code(s): J34.2 - Deviated nasal septum Category: Medical (3) Morning headache: Code(s): R51.9 - Headache, unspecified Category: Medical (4) Migraine without aura and without status migrainosus, not intractable: Code(s): G43.009 - Migraine without aura, not intractable, without status migrainosus Category: Medical Plan Nahomi is a 59-year-old female patient with a past medical history of bipolar 1 disorder, depression, asthma, GERD who is presenting for a follow-up visit for a diagnosis of migraine without aura. She has responded well to anti CGRP therapies in the past but unfortunately had side effects with both the Aimovig and Qulipta. I will submit for a trial of Emgality including both loading dose and maintenance dosing. In the meantime, she is also getting an in-lab sleep study due to history of insomnia and snoring. -In-lab sleep study scheduled for early September -Trial of Emgality including loading dose and maintenance dosing -Increase hydration -Continue sumatriptan 100mg as needed for acute therapy Medications: New galcanezumab-gnlm (Emgality Pen) 120 mg subcut ONCE 1 mL 4RF galcanezumab-gnlm (Emgality Pen) Loading dose 240 mg (2 mL) subcut ONCE 2 mL 0RF Discontinued atogepant (Qulipta) Discontinued Reason: Doctor's Order 60 mg PO DAILY 30 days 30 tabs 5RF Coding Level of Care Code Est Pt Level 4 (32611) Diagnoses Snoring R06.83 Deviated septum J34.2 Morning headache R51.9 Migraine without aura and without status migrainosus, not intractable G43.009
[2025-09-04 09:37] VITALS: BP 112/78; PULSE 78; RESP 16; O2SAT 95; BMI 21.6
== END 2025-09-04 09:50 | disposition home or self-care (01) ==
LOC: HO.HSM 09:32
PROVIDERS: PCP Internal Medicine Medical Oncology; Visit Provider Nurse Practitioner
DX: R06.83 Snoring (principal); J34.2 Deviated nasal septum; R51.9 Headache, unspecified; G43.009 Migraine without aura, not intractable, without status migrainosus
CPT/HCPCS: 99214